=== PATIENT | female | born 1955 | race Caucasian/White ===

== ENCOUNTER 2019-05-10 20:40 | Inpatient (IN) | payer MEDICAID ==
[~2019-05-10] VITALS: Ht 152.4 cm; Wt 52.6 kg
[2019-05-10 20:43] VITALS: BP_SYST 102
--- NOTE | 2019-05-10 20:43 | NUR ---
Placed in room 6 . Placed on site monitor, blood pressure machine and pulse oximeter. To gown for exam. Side rails up. Report given to LILIAN BAR.
--- NOTE | 2019-05-10 20:55 | NUR ---
RT at bedside
--- NOTE | 2019-05-10 21:00 | NUR ---
patient BIB BLS from SNF with c/o Trach bleeding s/p forced removal in AM. patient present with GCS of 7 at baseline. patient is stable trach to T Bar. patient has scant amount of blood on lips, no blood on trach site or inner cannula at the time of assessment. patient is not drooling, coughing or showing signs of blood/fluid in the throat at this time. Patient has CRE contact precautions from facility. Per EMT, patient was t-bar and stable at facility and needs medical evaluation/clearance. no other complaint or injury at this time.
--- NOTE | 2019-05-10 21:00 | NUR ---
ER at bedside examining patient.
--- NOTE | 2019-05-10 21:30 | NUR ---
Unsuccessful PIV attempts x 3 with U/S guidance. Blood flash to angiocath chamber, then blood stops with advancement attempt. All angiocaths D/C with tips intact, pressure dsgs applied to sites. Pt tolerated well.
--- NOTE | 2019-05-10 22:15 | NUR ---
patient shows not change in VS, patient resting at bedside. no acute bleeding from stable trach noted, no coughing, gagging or drooling of any kind. will continue to monitor.
[2019-05-10] MEDS ORDERED: NACL 0.9% 1,000 ML IV ONE (23:30)
--- NOTE | 2019-05-10 23:45 | NUR ---
patient had a large black liquid Bowel Movement. notified.
[2019-05-11] VITALS (25 sets, daily range): BP systolic 91–142
--- NOTE | 2019-05-11 | NUR ---
VS change MD notified. orders provided.
--- NOTE | 2019-05-11 | NUR ---
# 23 gauge angiocath placed to right hand. Use of asceptic technique. Opsite placed over site. Blood return noted. Blood for lab drawn from site. Flushed with 10 cc of normal saline. No evidence of infiltration noted. Patient tolerated well.
--- NOTE | 2019-05-11 00:30 | NUR ---
Urine catheter placed 16fr. patient tolerated well
--- NOTE | 2019-05-11 00:30 | NUR ---
Pt SPO2 80% on O2 at 2 LPM/Trach T-bar. RT at bedside, pt placed on Mechanical Ventilation via Trach with settings: A/C 12, Vt 350, FiO2 at 50%. Addendum: 05/11/19 at 0551 by BREONNA Per RT, pt has a #6 Poitex cuffed trach
--- NOTE | 2019-05-11 00:30 | NUR ---
RT called to bedside
--- NOTE | 2019-05-11 00:30 | NUR ---
second IV access and initial blood draw needed. unable to obtain x 4 attempts. charge nurse notifed.
[2019-05-11] MEDS ORDERED: TOPI100T39 PEG (00:35)
[2019-05-11] MEDS ORDERED: AMLO5TAB4 PEG (00:35)
[2019-05-11] MEDS ORDERED: LIP10 PEG (00:35)
[2019-05-11] MEDS ORDERED: METO50TA7 PEG (00:35)
[2019-05-11] MEDS ORDERED: [UNRECOGNIZED DRUG - CODE] MC (00:35)
[2019-05-11] MEDS ORDERED: ASA81 PEG (00:35)
[2019-05-11] MEDS ORDERED: CHLO473M12 MM (00:35)
[2019-05-11] MEDS ORDERED: LEVE250T2 PEG (00:35)
--- NOTE | 2019-05-11 00:36 | NUR ---
Medication reconciliation completed with information provided by MIRELLA CALLEJAS. Any prior medication reconciliation on file was reviewed and corrected.
[2019-05-11] MEDS ORDERED: cefTRIAXone 1 GM IVPB PREMIX 50 ML IV ONE (00:45)
--- NOTE | 2019-05-11 00:45 | NUR ---
SPO2 at 88%. FiO2 increased to 60% per RT.
--- NOTE | 2019-05-11 00:55 | NUR ---
SPO2 90%, FiO2 increased to 100% per RT.
--- NOTE | 2019-05-11 00:59 | NUR ---
MRSA bilateral Nares sent to lab
[2019-05-11] MEDS ORDERED: PANTOPRAZOLE SODIUM 40 MG/VIAL (PROTONIX) IVP ONE ×2 (01:00→05:00)
--- NOTE | 2019-05-11 01:00 | NUR ---
Urine specimen collected and analyzed in lab.
[2019-05-11 01:40] LABS: CLARITY/URINE CLOUDY (CLEAR); COLOR,URINE YELLOW (YELLOW); GLUCOSE,URINE NEGATIVE (NEGATIVE); KETONES,URINE NEGATIVE (NEGATIVE); PROTEIN URINE TRACE (NEGATIVE)
[2019-05-11 01:41] LABS: BILIRUBIN,URINE NEGATIVE (NEGATIVE); BLOOD, URINE 3+ (NEGATIVE); LEUKOCYTE ESTERASE ,URINE 3+ (NEGATIVE); NITRITE, URINE NEGATIVE (NEGATIVE); UROBILINOGEN,URINE 0.2 (0.2-1.0)
[2019-05-11 01:47] LABS: BACTERIA,URINE MODERATE /HPF (None Seen); MUCUS,URINE 2+ /LPF (None Seen); RBC,URINE >100 /HPF (0-3); WBC,URINE >100 /HPF (0-3); YEAST,URINE Moderate /HPF (None Seen)
--- NOTE | 2019-05-11 02:00 | NUR ---
patient had large liquid black stool.
--- NOTE | 2019-05-11 02:29 | NUR ---
made attempt to call Next of Kin for consent of centeral line.
--- NOTE | 2019-05-11 03:40 | NUR ---
Triple Lumen Central Line placed to Left Femoral Vein per Dr. Sharma, good blood return, biopatch applied and secured with transparent dsg. Pt tolerated procedure well.
--- NOTE | 2019-05-11 03:54 | NUR ---
care reported off to Stefan
[2019-05-11] MEDS ORDERED: NOREPINEPHRINE BITARTRATE 4 MG in NS 246 ML IV ONE (04:00)
[2019-05-11] MEDS ORDERED: NOREPINEPHRINE 4 MG/4 ML VIAL IV ONE ×2 (04:03→04:04)
--- NOTE | 2019-05-11 04:09 | NUR ---
Norepinephrine drip initiated for BP: 83/43, P: 92, 100% on Vent. Will continue to monitor.
--- NOTE | 2019-05-11 04:09 | NUR ---
Zenia rios in EDM - 05/11/19 at 0544 by [email or web address] Norepiniphrine drip initiated for BP: 83/43, P: 92, 100% on Vent. Will continue to monitor.
[2019-05-11 04:16] LABS: MEAN CORPUSCULAR HEMOGLOBIN 29 pg (27-31); MEAN CORPUSCULAR HGB CONC 31 % (32-36); MEAN CORPUSCULAR VOLUME 93 fL (79.0-98.0); PLATELET COUNT (AUTO) 624 K/uL (130-430); RED CELL DISTRIBUTION WIDTH 16.8 % (9.0-15.0)
[2019-05-11 04:18] LABS: CALCIUM 8.7 mg/dL (8.4-11.0); CREATININE 1.23 mg/dL (0.55-1.30); POTASSIUM 4.6 mmol/L (3.5-5.1)
--- NOTE | 2019-05-11 04:19 | NUR ---
Drip rate will remain at 2mcg/min: BP is 90/53, HR 96. Will continue to monitor.
[2019-05-11 04:21] LABS: INR 1.2 (0.8-1.2); PROTHROMBIN TIME 11.9 SECS (9.5-12.5)
[2019-05-11 04:23] LABS: ALBUMIN 1.6 g/dL (3.4-4.8); TOTAL BILIRUBIN 0.2 mg/dL (0.0-1.0)
--- NOTE | 2019-05-11 04:29 | NUR ---
Pt's SBP is greater than 90. Drip will continue to infuse at 2mcg/min. Will continue to monitor.
[2019-05-11 04:37] LABS: HEMATOCRIT 18.2 % (36-48); HEMOGLOBIN 5.6 g/dL (12.0-16.0)
[2019-05-11 04:38] LABS: RED BLOOD CELL COUNT(AUTO) 1.96 MIL/uL (4.2-6.2)
--- NOTE | 2019-05-11 04:39 | NUR ---
Pt's SBP is greater than 90. Drip will continue to infuse at 2mcg/min. Will continue to monitor.
--- NOTE | 2019-05-11 04:49 | NUR ---
Pt's SBP is greater than 90. Drip will continue to infuse at 2mcg/min. Will continue to monitor.
--- NOTE | 2019-05-11 04:50 | NUR ---
Admit orders received from Dr. Muñoz. Pt ICU Hold r/t nursing staffing.
--- NOTE | 2019-05-11 04:59 | NUR ---
Norepinephrine drip titrated to 4mcg/min per protocol for BP: 84/43 and HR: 106. Will continue to monitor
[2019-05-11 05:00] LABS: ATYPICAL LYMPHOCYTES % 0 % (0-0); BAND % (MANUAL) 14 % (0-6); BASOPHILS % (MANUAL) 0 % (0-2); EOSINOPHILS % (MANUAL) 0 % (0-7); LYMPHOCYTES % (MANUAL) 5 % (20-46); METAMYELOCYTES % 2 % (0-0); MONOCYTES % (MANUAL) 1 % (0-11); MYELOCYTES % 0 % (0-0)
[2019-05-11] MEDS ORDERED: NACL 0.9% 2,000 ML IV ONE (05:00)
[2019-05-11] MEDS: NACL 0.9% 1,000 ML IV SCH ×3 (05:00→17:00)
[2019-05-11] MEDS ORDERED: NOREPINEPHRINE BITARTRATE 4 MG in NS 246 ML IV SCH (05:00)
--- NOTE | 2019-05-11 05:09 | NUR ---
Pt's SBP is greater than 90. Drip will continue to infuse at 4mcg/min. Will continue to monitor.
[2019-05-11] MEDS ORDERED: PANTOPRAZOLE SODIUM 40 MG/VIAL (PROTONIX) ONE (05:19)
--- NOTE | 2019-05-11 05:19 | NUR ---
Pt's SBP is greater than 90. Drip will continue to infuse at 4mcg/min. Will continue to monitor.
--- NOTE | 2019-05-11 05:29 | NUR ---
Pt's SBP is greater than 90. Drip will continue to infuse at 4mcg/min. BP: 92/54 and HR: 97. Will continue to monitor
--- NOTE | 2019-05-11 05:30 | NUR ---
Pt unable to sign blood consent. Consent signed by myself and witnessed by a second RN. Also pt.'s son gave verbal phone consent for Full Code treatment. Requisitions sent to lab along with consent to prepare 2 units PRBC for stat transfusion.
--- NOTE | 2019-05-11 05:39 | NUR ---
BP: 102/58 HR: 89. Norepinephrine drip will be continued at 4mcg/min. Will continue to monitor.
[2019-05-11] MEDS: PANTOPRAZOLE SODIUM 40 MG in NS 50 ML IV SCH ×5 (05:40→20:05)
--- NOTE | 2019-05-11 05:49 | NUR ---
Lab calls to inform that blood is ready.
--- NOTE | 2019-05-11 05:49 | NUR ---
BP: 102/54 HR: 84. Norepinephrine drip will be continued at 4mcg/min. Will continue to monitor.
--- NOTE | 2019-05-11 05:59 | NUR ---
Continuous drip has been tritrated down to 3mcg/min for BP 111/59 and HR 83. Will continue to monitor
--- NOTE | 2019-05-11 06:09 | NUR ---
Drip will continue to infuse at 3mcg/min per BP of 99/58 and HR of 85. Will continue to monitor
--- NOTE | 2019-05-11 06:35 | NUR ---
Verbal consent was granted via phone per patient's son agreeing to administration of blood. Blood has been type and crossmatched. Blood sent from blood bank. Information on unit of blood checked against patient wristband at bedside by and Gato BAR. All information matches. Patient or responsible democrat informed of potential complications associated with blood transfusion. Informed of possible transfusion reaction symptoms. Aware of need to notify nurse at once of itching, shortness of breath, flushing, feeling of impending doom, or other symptoms not previously present. Vital signs taken within 5 minutes prior to initiation of transfusion. Stefan BAR will remain with patient for first 15 minutes of transfusion at which time vital signs will be re-assessed.
--- NOTE | 2019-05-11 06:39 | NUR ---
Norepinephrine drip titrated down to 2mcg/min for BP of 110/44 and HR 82. Will continue to monitor.
--- NOTE | 2019-05-11 06:50 | NUR ---
Patient is stable and no adverse effects noted 15 minutes after starting transfusion. Blood infusion rate has increased. Vital signs are stable, will continue to monitor.
--- NOTE | 2019-05-11 07:02 | NUR ---
Patient will be admitted to care of Dr. Muñoz. Admitted to ICU unit. Will go to room 4. Belongings list completed. Summary report printed. Report will be given at bedside.
--- NOTE | 2019-05-11 07:30 | NUR ---
Transfer to ICU 4 via ACLS protocol. Licensed nurse present. IV present no signs or symptoms of infiltration.
--- NOTE | 2019-05-11 07:40 | NUR ---
ADMISSION NOTE Received patient from ER via meera. Patient admitted with diagnosis of GI Bleed and Hypovolemic Shock. Patient is obtunded and responds to painful stimuli. Received with packed cell infusion and levophed drip at 2 mcg. Safety checks in place and bed set with brakes and lowest position. Addendum: 05/11/19 at 0905 by James Seo RN Received report via sbar from endorsing nurse DIPIKA Aviles.
--- NOTE | 2019-05-11 07:45 | NUR ---
Reviewed patient chart from [facility]. 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 Contact isolation initiated.
--- NOTE | 2019-05-11 07:50 | NUR ---
Blood Transfusion Began transfusion of second unit. Completed timeout with Cathy BAR. Patient vitals pre transfusion was 97.5, 88, 122/66, 18, 100 O2.
[2019-05-11] MEDS ORDERED: ACETAMINOPHEN 650 MG SUPP.RECT RC PRN (08:00)
[2019-05-11] MEDS ORDERED: cefTRIAXone 1 GM in D5W 50 ML IV SCH (08:00)
[2019-05-11] MEDS ORDERED: LORazepam 2 MG/ML VIAL IVP PRN (08:00)
[2019-05-11] MEDS ORDERED: PANTOPRAZOLE SODIUM 40 MG in NS 50 ML IV SCH (08:00)
--- NOTE | 2019-05-11 08:05 | NUR ---
Blood Transfusion Patient is laying on bed and not presenting any respiratory distress or any other visible signs of an adverse reaction. Patient vitals are 97.8, 91, 17, 118/60, 100%.
--- NOTE | 2019-05-11 09:02 | NUR ---
ANSWERING SERVICE. LEFT MESSAGE TO LADY FOR A CONSULT WITH DR JETT.
--- NOTE | 2019-05-11 09:06 | NUR ---
ANSWERING SERVICE. PHONED OFFICE # OF DR PHELPS, MESSAGE LEFT TO PURVI.
[2019-05-11] MEDS: LEVOFLOXACIN 250 MG/D5W 50 ML IV SCH (10:00)
[2019-05-11] MEDS: levETIRAcetam 250 MG in NS 100 ML IV SCH ×2 (10:39→21:17)
[2019-05-11 11:55] LABS: BASOPHILS % (AUTO) 0.1 % (0.0-2.0); EOSINOPHILS % (AUTO) 0.1 % (0.0-4.0); HEMATOCRIT 30.3 % (36-48); HEMOGLOBIN 9.7 g/dL (12.0-16.0); LYMPHOCYTES # (AUTO) 0.6 K/uL (1.0-5.5); LYMPHOCYTES % (AUTO) 2.6 % (20.5-51.5); MEAN CORPUSCULAR HEMOGLOBIN 31 pg (27-31); MEAN CORPUSCULAR HGB CONC 32 % (32-36); MEAN CORPUSCULAR VOLUME 96 fL (79.0-98.0); MONOCYTES # (AUTO) 0.5 K/uL (0.0-1.0); NEUTROPHILS # (AUTO) 23.9 K/uL (1.8-7.7); NEUTROPHILS % (AUTO) 95.2 % (40.0-70.0); PLATELET COUNT (AUTO) 369 K/uL (130-430); RED BLOOD CELL COUNT(AUTO) 3.15 MIL/uL (4.2-6.2); RED CELL DISTRIBUTION WIDTH 15.3 % (9.0-15.0); WHITE BLOOD COUNT (AUTO) 25.1 K/uL (4.8-10.8)
--- NOTE | 2019-05-11 12:30 | NUR ---
Called Dr. Muñoz left message with exchange.
--- NOTE | 2019-05-11 12:55 | NUR ---
Received call from Dr. Muñoz. Reported new CBC results. Received orders for another CMP CBC at 1999, PRN Bolus 0.9 NS if systolic blood pressure is less than 90, and reduced NS IV fluid to 150 ml/hr.
[2019-05-11] MEDS ORDERED: NS 500 ML IV ONE (14:00)
[2019-05-11] MEDS ORDERED: NS 500 ML IV PRN (14:45)
--- NOTE | 2019-05-11 15:40 | NUR ---
RT NOTES Sterile trach care well tolerated. T.T remains secure/patent. Spare trach/ambubag at bedside.
[2019-05-11] MEDS: METOCLOPRAMIDE HCL 10 MG/2 ML VIAL IVP SCH (17:32)
--- NOTE | 2019-05-11 19:28 | NUR ---
Closing Note Provided plan of care via sbar to endorsing nurse Gray BAR. Completed bedside round.
--- NOTE | 2019-05-11 19:58 | NUR ---
TRACH TO VENT AC 12 TV 350 FIO2 100 % kept up right position VENT ALARMING @ times suction AIR WAY thick mucus as needed tolerated chest movement shallow also symmetrical no use of accessory muscles / monitor .
--- NOTE | 2019-05-11 20:01 | NUR ---
LABS ORDERED BLOOD DRAWL @ THE BEDSIDE THIS HOUR CBC BMP .
[2019-05-11 20:17] LABS: BASOPHILS % (AUTO) 0.1 % (0.0-2.0); EOSINOPHILS # (AUTO) 0.1 K/uL (0.0-0.4); EOSINOPHILS % (AUTO) 0.4 % (0.0-4.0); HEMATOCRIT 25.7 % (36-48); LYMPHOCYTES # (AUTO) 0.5 K/uL (1.0-5.5); LYMPHOCYTES % (AUTO) 2.7 % (20.5-51.5); MEAN CORPUSCULAR HEMOGLOBIN 31 pg (27-31); MEAN CORPUSCULAR HGB CONC 33 % (32-36); MEAN CORPUSCULAR VOLUME 95 fL (79.0-98.0); MONOCYTES # (AUTO) 0.5 K/uL (0.0-1.0); MONOCYTES % (AUTO) 2.4 % (1.7-9.3); NEUTROPHILS # (AUTO) 18.4 K/uL (1.8-7.7); NEUTROPHILS % (AUTO) 94.4 % (40.0-70.0); PLATELET COUNT (AUTO) 363 K/uL (130-430); RED BLOOD CELL COUNT(AUTO) 2.71 MIL/uL (4.2-6.2); RED CELL DISTRIBUTION WIDTH 15.6 % (9.0-15.0); WHITE BLOOD COUNT (AUTO) 19.5 K/uL (4.8-10.8)
[2019-05-11 20:27] LABS: CREATININE 0.71 mg/dL (0.55-1.30)
[2019-05-11 20:28] LABS: HEMOGLOBIN 8.4 g/dL (12.0-16.0)
[2019-05-11 20:38] LABS: POTASSIUM 2.9 mmol/L (3.5-5.1)
--- NOTE | 2019-05-11 20:54 | NUR ---
PHONED PAGED DR CLEARY REGARDING K 2.9 & CL 121
--- NOTE | 2019-05-11 21:05 | NUR ---
DR MADIHA Ortiz notified regarding Vent oxygen saturation orders, and Lab results of K+ 2.9, CL 121. Orders received. 1. Krider 40MeQ KcL IV 100ml via central line over 4 HRs 2. Titrate FIO2 to keep O2 saturation greater than 90%.
[2019-05-11] MEDS ORDERED: KCL 40 mEq in 100 mL (PREMIX) 100 ML IV ONE ×3 (21:15→22:19)
[2019-05-11] MEDS ORDERED: VANCOMYCIN HCL 1 GM/NS PREMIX 250 ML IV SCH (22:30)
--- NOTE | 2019-05-11 22:30 | NUR ---
PHONED PAGED DR RIKI RECIO REGARDING + BC
[2019-05-11] MEDS ORDERED: VANCOMYCIN HCL 1000 MG/VIAL IV ONE (22:51)
--- NOTE | 2019-05-11 23:01 | NUR ---
NEW ORDERS DR LYN , ID CONSULT DR Maricruz SIFUENTES START VANCO 1 GM , 0.45 % NS @ 150 ML HR .
--- NOTE | 2019-05-11 23:35 | NUR ---
CONSULTATION PAGED/CALLED Reason for Consultation: Positive Blood culture Person Who was Notified: Kathy Singh Consulting Physician: Dr Sixto Mario Trimming Operator Specialty: ID Ordering Physician: Dr Muñoz
--- NOTE | 2019-05-11 23:56 | NUR ---
FI02 CHANGED TO 70 % 02 SAT 100 %
[2019-05-12] VITALS (30 sets, daily range): BP systolic 94–126
--- NOTE | 2019-05-12 | NUR ---
DR Maricruz SIFUENTES MD at the bedside with patient .
[2019-05-12] MEDS: 0.45% NS 500 ML IV SCH ×2 (01:26→03:11)
--- NOTE | 2019-05-12 02:49 | NUR ---
BED BATH GIVEN LARGE STOOL NOTED KEPT CLEAN ALSO DRY as needed & prn .
[2019-05-12] MEDS: PANTOPRAZOLE SODIUM 40 MG in NS 50 ML IV SCH ×3 (03:09→14:25)
--- NOTE | 2019-05-12 04:38 | NUR ---
CHG bed bath administer off loading Reposition & turning on two - hour schedule also kept clean & dry as needed activity tolerated .
[2019-05-12] MEDS ORDERED: 0.45% NS 1,000 ML IV SCH (04:58)
[2019-05-12 05:02] LABS: BASOPHILS % (AUTO) 0.3 % (0.0-2.0); EOSINOPHILS # (AUTO) 0.2 K/uL (0.0-0.4); EOSINOPHILS % (AUTO) 1.7 % (0.0-4.0); HEMOGLOBIN 7.3 g/dL (12.0-16.0); LYMPHOCYTES # (AUTO) 0.6 K/uL (1.0-5.5); LYMPHOCYTES % (AUTO) 4.4 % (20.5-51.5); MEAN CORPUSCULAR HEMOGLOBIN 31 pg (27-31); MEAN CORPUSCULAR HGB CONC 34 % (32-36); MEAN CORPUSCULAR VOLUME 94 fL (79.0-98.0); MONOCYTES # (AUTO) 0.4 K/uL (0.0-1.0); NEUTROPHILS # (AUTO) 13.1 K/uL (1.8-7.7); NEUTROPHILS % (AUTO) 90.6 % (40.0-70.0); PLATELET COUNT (AUTO) 333 K/uL (130-430); RED BLOOD CELL COUNT(AUTO) 2.31 MIL/uL (4.2-6.2); RED CELL DISTRIBUTION WIDTH 15.4 % (9.0-15.0); WHITE BLOOD COUNT (AUTO) 14.5 K/uL (4.8-10.8)
[2019-05-12 05:05] LABS: HEMATOCRIT 21.6 % (36-48)
[2019-05-12 05:21] LABS: INR 1.1 (0.8-1.2)
[2019-05-12 05:23] LABS: ALBUMIN 1.3 g/dL (3.4-4.8); CALCIUM 7.8 mg/dL (8.4-11.0); CREATININE 0.71 mg/dL (0.55-1.30); PHOSPHORUS 2.7 mg/dL (2.7-4.5); POTASSIUM 3.3 mmol/L (3.5-5.1); TOTAL BILIRUBIN 0.1 mg/dL (0.0-1.0)
--- NOTE | 2019-05-12 06:00 | NUR ---
DR RIKI RECIO UPDATED & MADE AWARE OF CRITICAL LABS H 7.3 H 21.6 CL 126 , NEW ORDERS OBTAINED .
[2019-05-12] MEDS: METOCLOPRAMIDE HCL 10 MG/2 ML VIAL IVP SCH ×2 (06:30→11:12)
[2019-05-12] MEDS: D5W 1,000 ML IV SCH ×2 (06:31→21:03)
[2019-05-12] MEDS ORDERED: KCL 40 mEq in 100 mL (PREMIX) 100 ML IV ONE (07:00)
--- NOTE | 2019-05-12 07:35 | NUR ---
OPENING NOTE Patient resting in the bed with eyes closed. No acute distress. Respiration even and unlabored. HOB elevated. Trach intact to vent:AC-12, VT-350, FIO2-350. Skin warm and dry to touch. Central line intact to left femoral intact, no redness, no swelling, no drainage, covered with clean and dry dressing. On D5W at 150ml/hr, and Protonix drip at 10ml/hr, infusing well. F/C intact, drain gravity with yellow urine. Safety measure maintained. Call light within reached. Bed locked in low position, side rails up. Will continue to monitor.
--- NOTE | 2019-05-12 08:05 | NUR ---
ADJUSTED FIO2 BY RT RT adjusted FIO2 from 60% to 40% based on ABG result, NF2=983.7mmHg, PCO2=26.9mmHg. Patient resting in the bed with no scute distress. O2 avg=961% at this time. Continue to monitor.
[2019-05-12] MEDS: LEVOFLOXACIN 250 MG/D5W 50 ML IV SCH (08:44)
--- NOTE | 2019-05-12 09:19 | NUR ---
CORK PRESSING MACHINE OPERATOR CONSULT Called and received the call back from Dr. Muñoz [facility], reported to Dr. Muñoz patient heart rate elevated to 130s-150s and no stone polisher machine consult. Dr. Muñoz with order for stone polisher machine consult with Michael Jones. Dr. Pa in the unit and awake the consult.
[2019-05-12] MEDS ORDERED: METOPROLOL TARTRATE 5 MG/5 ML VIAL IVP PRN (09:30)
[2019-05-12] MEDS: CEFEPIME 1 GM in D5W 50 ML IV SCH ×2 (09:57→22:12)
[2019-05-12] MEDS: levETIRAcetam 250 MG in NS 100 ML IV SCH ×2 (10:33→21:05)
--- NOTE | 2019-05-12 10:53 | NUR ---
SEEN AND EXAMINED BY SHAAN ENGLAND Awake ABG result for today and FIO2=40% now.
[2019-05-12] MEDS: VANCOMYCIN HCL 750 MG/NS 250 ML IV SCH ×2 (11:12→22:13)
--- NOTE | 2019-05-12 11:20 | NUR ---
BLOOD TRANSFUSION STARTED Patient no acute distress. BP=96/64, T=98.2, P=122, R=22.Will stay with patient for 15 min.
--- NOTE | 2019-05-12 11:35 | NUR ---
15 MIN AFTER BLOOD TRANSFUSION STARTED Patient no acute distress. T=98.7, P=130, R=28, VJ=255/67. No skin rashes noted. Continue to monitor.
--- NOTE | 2019-05-12 13:45 | NUR ---
BLOOD TRANSFUSION COMPLETED No acute distress. T=98.3, P=103, R=25, DS=952/64. No skin rash noted. Safety measure maintained. Continue on Protonix drip, infusing well. Safety measure maintained. Call light within reached. Bed locked in low position, side rails up, bed alarm on. Continue to monitor.
[2019-05-12] MEDS ORDERED: MEPERIDINE HCL/PF 100 MG/ML AMP ONE (14:15)
[2019-05-12] MEDS ORDERED: SIMETHICONE 40 MG/0.6 ML ML ONE (14:16)
[2019-05-12] MEDS: MEPERIDINE HCL/PF 25 MG/ML DISP.SYRIN ONE ×2 (16:18→16:20)
[2019-05-12] MEDS: MIDAZOLAM HCL 5 MG/5 ML VIAL ONE ×2 (16:18→16:20)
--- NOTE | 2019-05-12 16:29 | NUR ---
EGD DONE BY MAREK RITCHIE AT BEDSIDE EGD with biopsy done by Marek Ritchie at bedside with diagnosis of esophagitis and gastritis. Patient in stable condition. No acute distress. Procedure tolerated well. Safety measure maintained. Call light within reached. Continue to monitor.
--- NOTE | 2019-05-12 16:40 | NUR ---
SEEN BY DR. LYN [facility], WILL CHECK ORDER.
[2019-05-12] MEDS ORDERED: SUCRALFATE 1 GM TABLET PO ONE (17:15)
[2019-05-12] MEDS ORDERED: MUPIROCIN 2% TOPICAL OINTMENT 22 GM NS ONE (17:15)
--- NOTE | 2019-05-12 18:55 | NUR ---
CLOSING NOTE Patient resting in the bed with eyes closed. No acute distress. Respiration even and unlabored. HOB elevated. Trach intact to vent:AC-12, VT-350, FIO2-40%. Skin warm and dry to touch. Central line intact to left femoral intact, no redness, no swelling, no drainage, covered with clean and dry dressing. IVF infusing well. F/C intact, drain gravity with yellow urine. All needs met. No seizure activity noted during shift. Safety measure maintained. Call light within reached. Bed locked in low position, side rails up. Will endorse to night nurse.
--- NOTE | 2019-05-12 19:30 | NUR ---
REPORT GIVEN TO NEHAL, MARCO ANTONIO NURSE Patient in stable condition, no acute distress. Jevity 1.2 not available at this time endorsed to Nehal to follow up.
[2019-05-12] MEDS: PANTOPRAZOLE SODIUM 40 MG TAB GT SCH (21:03)
[2019-05-12] MEDS: SUCRALFATE 1 GM TABLET PO SCH (21:03)
[2019-05-13] VITALS (23 sets, daily range): BP systolic 105–164
[2019-05-13] MEDS: D5W 1,000 ML IV SCH ×2 (02:30→09:10)
[2019-05-13] MEDS ORDERED: ACETAMINOPHEN 650 MG/20.3 ML UDC GT PRN (05:00)
[2019-05-13] MEDS ORDERED: ACETAMINOPHEN 650 MG/20.3 ML UDC ONE (05:05)
[2019-05-13 05:43] LABS: BASOPHILS % (AUTO) 0.3 % (0.0-2.0); EOSINOPHILS # (AUTO) 0.5 K/uL (0.0-0.4); EOSINOPHILS % (AUTO) 4.4 % (0.0-4.0); HEMATOCRIT 22.9 % (36-48); LYMPHOCYTES # (AUTO) 0.8 K/uL (1.0-5.5); LYMPHOCYTES % (AUTO) 7.1 % (20.5-51.5); MEAN CORPUSCULAR HEMOGLOBIN 31 pg (27-31); MEAN CORPUSCULAR HGB CONC 34 % (32-36); MEAN CORPUSCULAR VOLUME 91 fL (79.0-98.0); MONOCYTES # (AUTO) 0.5 K/uL (0.0-1.0); MONOCYTES % (AUTO) 4.6 % (1.7-9.3); NEUTROPHILS # (AUTO) 9.6 K/uL (1.8-7.7); NEUTROPHILS % (AUTO) 83.6 % (40.0-70.0); PLATELET COUNT (AUTO) 303 K/uL (130-430); RED BLOOD CELL COUNT(AUTO) 2.51 MIL/uL (4.2-6.2); RED CELL DISTRIBUTION WIDTH 16.3 % (9.0-15.0); WHITE BLOOD COUNT (AUTO) 11.5 K/uL (4.8-10.8)
[2019-05-13 05:58] LABS: INR 1.1 (0.8-1.2); PROTHROMBIN TIME 11.1 SECS (9.5-12.5)
[2019-05-13 05:59] LABS: HEMOGLOBIN 7.8 g/dL (12.0-16.0)
[2019-05-13 06:10] LABS: ALBUMIN 1.5 g/dL (3.4-4.8); CALCIUM 8.1 mg/dL (8.4-11.0); CREATININE 0.72 mg/dL (0.55-1.30); THYROID STIMULATING HORMONE 4.08 uIu/mL (0.34-4.82)
--- NOTE | 2019-05-13 06:51 | NUR ---
Nutrition Update Fortunato Scale 12 noted. Pt admitted for GI bleed, Hypovolemic shock Diet: Jevity 1.2 at 50ml/hr, FWF 100ml Q6H via GT BMI: 26.4 kg/m2 RD to follow per nutrition care standards.
--- NOTE | 2019-05-13 07:05 | NUR ---
Opening Note Patient received in bed on surveillance system monitor with NSR. Patient has a tracheostomy in place and on ventilator with settings of AC 12, TV 350, FiO2 40% with notable deep breathing. Patient has a left femoral central line infusing D5W @ 150 ml/hr. Patient has a g-tube in place infusing Jevity 1.2 @ 30 ml/hr. Patient has a sullivan catheter in place draining yellow urine. Safety and seizure precautions enforced.
--- NOTE | 2019-05-13 07:21 | NUR ---
ENDORSEMENT Pt care endorsed to DIPIKA Beckman using nursing SBAR.
[2019-05-13 07:38] LABS: POTASSIUM 2.5 mmol/L (3.5-5.1)
[2019-05-13 07:55] LABS: TOTAL BILIRUBIN 0.2 mg/dL (0.0-1.0)
[2019-05-13] MEDS ORDERED: KCL 40 mEq in 100 mL (PREMIX) 100 ML IV ONE (08:15)
[2019-05-13] MEDS ORDERED: POTASSIUM CHLORIDE 20 MEQ/PKT PACKET GT ONE (08:15)
--- NOTE | 2019-05-13 08:30 | NUR ---
MD Rounds Dr. Pa @ bedside. No new orders received.
[2019-05-13] MEDS: levETIRAcetam 250 MG in NS 100 ML IV SCH ×2 (08:44→20:51)
[2019-05-13] MEDS: CEFEPIME 1 GM in D5W 50 ML IV SCH ×2 (08:44→21:41)
[2019-05-13] MEDS: LEVOFLOXACIN 250 MG/D5W 50 ML IV SCH (08:45)
[2019-05-13] MEDS: MUPIROCIN 2% TOPICAL OINTMENT 22 GM NS SCH ×2 (08:46→20:51)
[2019-05-13] MEDS: PANTOPRAZOLE SODIUM 40 MG TAB GT SCH ×2 (08:46→20:52)
[2019-05-13] MEDS: SUCRALFATE 1 GM TABLET PO SCH ×4 (08:46→20:52)
--- NOTE | 2019-05-13 09:30 | NUR ---
RN Update/Wound Care Performed linen change and wound care, dressing c/d/i. Patient tolerated procedure well. No distress noted.
[2019-05-13] MEDS ORDERED: MAGNESIUM SULFATE 50 ML IV ONE (09:45)
[2019-05-13] MEDS: VANCOMYCIN HCL 750 MG/NS 250 ML IV SCH ×2 (10:24→22:10)
--- NOTE | 2019-05-13 11:05 | NUR ---
MD Rounds Dr. De Paz @ bedside. New orders received and carried out.
--- NOTE | 2019-05-13 14:17 | NUR ---
Dietitian Recommendations *Recommend Vital AF 1.2 at 50ml/hr (goal rate), Brad BID, FWF 100ml Q6H via GT. Provides: 1600 kcal, 95 gm/ protein and 1568ml free water daily. Meets: 103% of estimated calorie needs and 78% of lower end of estimated protein needs. Please see Nutritional Assessment for details. [facility], RD
[2019-05-13] MEDS ORDERED: MAGNESIUM SULFATE 4 GM in D5W 250 ML IV ONE (16:00)
[2019-05-13] MEDS ORDERED: METOPROLOL TARTRATE 50 MG TABLET PO ONE (16:15)
[2019-05-13] MEDS: CHOLECALCIFEROL (VITAMIN D3) 2,000 UNIT TABLET GT SCH (16:15)
[2019-05-13] MEDS ORDERED: cloNIDine HCL 0.1 MG TABLET GT PRN (16:15)
--- NOTE | 2019-05-13 16:40 | NUR ---
Central line dressing change Central line dressing changed. New dressing c/d/i. Patient tolerated procedure well. No distress noted.
[2019-05-13] MEDS: FLUCONAZOLE 100 MG TABLET (DIFLUCAN) GT SCH (17:00)
--- NOTE | 2019-05-13 17:03 | NUR ---
1650 CHANGED RATE TO [address] RAMOS. PT TOLERATING WELL. WILL CONTINUE TO MONITOR. Addendum: 05/13/19 at 1704 by Kymberly Mohamud RT Amended: Links added.
[2019-05-13] MEDS: LR 1,000 ML IV SCH (17:30)
--- NOTE | 2019-05-13 18:42 | NUR ---
Transfer Transferred patient to Tele 134A via bed and is connected to portable youth nutritional monitor. Patient endorsed to tele tech using SBAR format. No signs of distress noted during transfer.
--- NOTE | 2019-05-13 20:00 | NUR ---
Pt was received lying in bed with both eyes closed. No acute distress noted at this time. Fall, safety and seizure precautions are in place. Pt has Tracheostomy in place and connected to Mechanical Ventilator with settings of AC 14, TV 350 and FIO2 of 40%. Pt is tolerating vent settings well. IVF of LR is infusing well via left Femoral line at 100ml/hr with the dressing dry and intact. G tube is currently clamped and GT Feeding of Vital AF will be started at 50ml/hr per MD's order. Vanegas Cath to gravity drainage noted with yellowish urine.
[2019-05-13] MEDS: POTASSIUM CHLORIDE 20 MEQ/PKT PACKET PO SCH (20:52)
[2019-05-13] MEDS: LACTOBACILLUS RHAMNOSUS GG 1 CAP CAPSULE GT SCH (20:52)
[2019-05-13] MEDS: METOPROLOL TARTRATE 50 MG TABLET PO SCH (20:53)
--- NOTE | 2019-05-13 22:00 | NUR ---
Pt remains non-verbal. IVF and GT Feeding are infusing well. Fall, seizure and safety precautions are in place.
--- NOTE | 2019-05-14 | NUR ---
Pt is resting quietly in bed. No signs of distress noted. IVF and GTF are infusing well. Fall, safety and seizure precautions are in place.
[2019-05-14] MEDS: LR 1,000 ML IV SCH ×2 (02:00→12:56)
--- NOTE | 2019-05-14 02:00 | NUR ---
Pt is resting quietly in bed and tolerating vent settings well. No signs of distress noted. IVF and GTF are infusing well. Fall, safety and seizure precautions are in place.
[2019-05-14 02:32] VITALS: BP_SYST 128
--- NOTE | 2019-05-14 04:00 | NUR ---
Pt is resting without any distress noted. Fall and safety precautions are in place. IVF and G Tube feeding are infusing well.
--- NOTE | 2019-05-14 06:30 | NUR ---
Pt is resting quietly in bed. No acute distress noted at this time. IVF and GT Feeding are infusing well. Will endorse to day shift nurse.
[2019-05-14 06:52] LABS: BASOPHILS % (AUTO) 0.3 % (0.0-2.0); EOSINOPHILS # (AUTO) 0.2 K/uL (0.0-0.4); EOSINOPHILS % (AUTO) 1.5 % (0.0-4.0); HEMATOCRIT 27.3 % (36-48); LYMPHOCYTES # (AUTO) 1.1 K/uL (1.0-5.5); LYMPHOCYTES % (AUTO) 6.9 % (20.5-51.5); MEAN CORPUSCULAR HEMOGLOBIN 30 pg (27-31); MEAN CORPUSCULAR HGB CONC 33 % (32-36); MEAN CORPUSCULAR VOLUME 92 fL (79.0-98.0); MONOCYTES # (AUTO) 0.7 K/uL (0.0-1.0); MONOCYTES % (AUTO) 4.2 % (1.7-9.3); NEUTROPHILS # (AUTO) 13.7 K/uL (1.8-7.7); NEUTROPHILS % (AUTO) 87.1 % (40.0-70.0); PLATELET COUNT (AUTO) 296 K/uL (130-430); RED BLOOD CELL COUNT(AUTO) 2.95 MIL/uL (4.2-6.2); RED CELL DISTRIBUTION WIDTH 17.2 % (9.0-15.0); WHITE BLOOD COUNT (AUTO) 15.7 K/uL (4.8-10.8)
[2019-05-14 07:09] LABS: ALBUMIN 1.4 g/dL (3.4-4.8); CALCIUM 8.3 mg/dL (8.4-11.0); CREATININE 0.78 mg/dL (0.55-1.30); POTASSIUM 3.7 mmol/L (3.5-5.1); TOTAL BILIRUBIN 0.3 mg/dL (0.0-1.0)
--- NOTE | 2019-05-14 07:54 | NUR ---
PT IN BED AROUSAL TO TACTILE STIMULATION. ON VENT AND TUBE FEEDING RUNNING AND PATENT VSS WILL CONT TO MONITOR
[2019-05-14] MEDS: LACTOBACILLUS RHAMNOSUS GG 1 CAP CAPSULE GT SCH ×2 (08:36→21:13)
[2019-05-14] MEDS: PANTOPRAZOLE SODIUM 40 MG TAB GT SCH ×2 (08:36→21:13)
[2019-05-14] MEDS: POTASSIUM CHLORIDE 20 MEQ/PKT PACKET PO SCH (08:36)
[2019-05-14] MEDS: CHOLECALCIFEROL (VITAMIN D3) 2,000 UNIT TABLET GT SCH (08:36)
[2019-05-14] MEDS: FLUCONAZOLE 100 MG TABLET (DIFLUCAN) GT SCH (08:36)
[2019-05-14] MEDS: SUCRALFATE 1 GM TABLET PO SCH ×4 (08:36→21:13)
[2019-05-14] MEDS: METOPROLOL TARTRATE 50 MG TABLET PO SCH ×2 (08:37→21:14)
[2019-05-14] MEDS: VANCOMYCIN HCL 750 MG/NS 250 ML IV SCH ×2 (08:38→21:49)
[2019-05-14] MEDS: CEFEPIME 1 GM in D5W 50 ML IV SCH (08:38)
[2019-05-14] MEDS ORDERED: FLUCONAZOLE 100 MG TABLET (DIFLUCAN) GT ONE (09:15)
[2019-05-14] MEDS ORDERED: FUROSEMIDE 20 MG/2 ML VIAL IVP ONE (09:30)
[2019-05-14] MEDS ORDERED: POTASSIUM CHLORIDE 20 MEQ/PKT PACKET PO ONE (09:30)
[2019-05-14] MEDS: levETIRAcetam 250 MG in NS 100 ML IV SCH ×2 (09:36→21:14)
[2019-05-14] MEDS: MUPIROCIN 2% TOPICAL OINTMENT 22 GM NS SCH ×2 (09:59→21:15)
[2019-05-14 10:08] VITALS: BP_SYST 125
[2019-05-14 11:26] VITALS: BP_SYST 100
[2019-05-14] MEDS ORDERED: PIPERACILLIN/TAZO 4.5GM/DEX-IS 100 ML IV SCH (14:00)
--- NOTE | 2019-05-14 14:54 | NUR ---
Nicholas Alcantara for sputum culture result
--- NOTE | 2019-05-14 15:03 | NUR ---
WOUND EVALUATION: Late note for 05/14/19 at 1503 secondary to patient care. Wound Consult received from Dr. Muñoz. Thank you, Dr. Muñoz, for the consult. Patient received in a Republic Bed with an IsoFlex AMY mattress with low air-loss therapy initiated, awake, non-verbal, non-responsive to verbal commands. Patient is unable to turn in bed independently. Fortunato Score is a 12. Past Medical History: Chronic respiratory failure, tracheostomy, CVA, seizure disorder, hyperlipidemia, hypertension, anoxic encephalopathy, dysphagia, G-tube placement, on G-tube feeding, tracheostomy. Recent Labs: WBC 15.7, RBC 2.95, hemoglobin 9.0, hematocrit 27.3, chloride 109, BUN 23, creatinine 0.78, GFR 79, glucose 109, calcium 8.3, albumin 1.4, PTT 22.7. Intrinsic factors that delay wound healing: Chronic respiratory failure, encephalopathy, severe hypoalbuminemia. Extrinsic factors that delay wound healing: Immobility. Microbiology: Blood culture results 2 in progress. MRSA screen results positive. 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 Urine culture results positive for yeast. Wound Assessment: 1. Sacral area: Unstageable pressure ulcer, present on admission. Wound bed has 70% yellow slough, 30% red tissue. No odor, scant yellow purulent drainage. Periwound intact. Surrounding tissue has scar tissue. Wound measures 6.8 cm x 8.0 cm. 2. Right Upper Sacral area: Unstageable pressure ulcer, present on admission. Wound bed has 70% yellow slough, 30% red tissue. No odor, scant yellow purulent drainage. Periwound intact. Surrounding tissue has scar tissue. Wound measures 1.0 cm x 1.1 cm. 3. Left Lower Sacral area: Re-opened scar tissue from a pressure ulcer of prior unknown stage, present on admission. Wound bed has 100% dull red tissue. No odor, no drainage. Periwound intact. Surrounding tissue has scar tissue. Wound measures 1.0 cm x 0.5 cm x 0.1 cm. Recommend: Cleanse wounds with normal saline. Apply moisture barrier cream to maria luisa-wounds. Apply Venelex ointment to wound beds. Cover sites with non-adhesive foam dressings, then secure with transparent dressings. Perform wound care daily, and as needed for dressing soiling or dislodgement. 4. right lateral hip near greater trochanter: Stage IV pressure ulcer, present on admission. Wound bed has 85% red tissue, 15% yellow tissue. No odor, no drainage. Periwound has pink and dark discolored tissue. Surrounding tissue has scar tissue. Undermining present from 39 o'clock (0.6 cm at 3 o'clock; 1.2 cm at at 6 o'clock; 0.6 cm at at 3 o'clock. Wound measures 4.0 cm x 4.0 cm x 0.5 cm. Recommend: Cleanse wound with normal saline. Apply moisture barrier cream to maria luisa-wound. Apply Venelex ointment to wound bed. Cover site with foam dressing. Perform wound care daily, and as needed for dressing soiling or dislodgement. 5. Left heel: Blanchable erythema, present on admission. 6. Right heel: Blanchable erythema, present on admission. 7. left lateral malleolus: Blanchable erythema, present on admission. Recommend: Elevate, offload and float bilateral heels and ankles with one pillow lengthwise under each extremity at all times. Do not allow any portion of heels or Malleoli to touch bed or other surfaces at any times. Also recommend: Reposition patient [id number] only every 2 hours with pillow support, and off-load pressure areas with pillows for pressure re-distribution. Offload, elevate and float bilateral heels with one pillow lengthwise under each extremity at all times. Perform skin care and monitor skin integrity Q shift. Use moisture barrier cream on buttocks and other moisture susceptible areas QID and as needed for soiling. Maintain patient on a low air-loss mattress.
[2019-05-14] MEDS ORDERED: BALSAM PERU/CASTOR OIL 60 GM OINT...G. TP ONE (15:15)
[2019-05-14 15:31] VITALS: BP_SYST 103
[2019-05-14 16:00] VITALS: BP_SYST 103
[2019-05-14] MEDS ORDERED: EPOETIN ALFA 4,000 UNITS/ML VIAL SUBCUT ONE (16:30)
[2019-05-14] MEDS: NS IV SCH (17:27)
[2019-05-14] MEDS: AMIKACIN SULFATE IV SCH (17:27)
[2019-05-14] MEDS: IRON SUCROSE COMPLEX 100 MG in NS 100 ML IV SCH (17:28)
--- NOTE | 2019-05-14 18:10 | NUR ---
PT IN BED SHOWS NO S/S OF ACUTE DISTRESS PT MONITORING NO ACUTE DISTRESS NOTED WILL CONT TO JOVITA
--- NOTE | 2019-05-14 19:20 | NUR ---
OPENING NOTES Pt and endorsement received from day shift nurse. Pt is resting in bed with both eyes closed, with visible chest rise and fall with non-labored breathing noted. Pt on mech vent with setting of AC:14, FiO2:40%, TV:350ml. Pt on IVF of LR at 50ml/hr and infusing well on left femoral line. Pt on G-tube feeding with Vital AF 1.2 at 50ml/hr and infusing well. Pt on sullivan catheter with yellow urine noted in the bag and hanged below bladder level. No signs of pain like moaning or grimacing. No signs of acute distress or SOB noted. Aspiration precautions in place with head elevated at 40 degrees. Seizure pads and safety precautions in place with 3 side rails up, wheels locked, bed alarm on and in lowest level. Call light with pt. Will continue to monitor.
[2019-05-14 21:10] VITALS: BP_SYST 133
[2019-05-14] MEDS: POTASSIUM CHLORIDE 20 MEQ/PKT PACKET GT SCH (21:13)
--- NOTE | 2019-05-14 22:10 | NUR ---
INCONTINENCE CARE Pt had a loose bowel movement, incontinence care rendered with the help of SANDY Hill and pt tolerated well. Suctioning done as well, pt had a thick yellow sputum. NO signs of acute distress noted. Seizure, aspiration and safety precautions in place. Will continue to monitor.
--- NOTE | 2019-05-15 00:58 | NUR ---
ROUNDS Pt is resting in bed with both eyes closed, with visible chest rise and fall with non-labored breathing noted. FLACC score is 0/10. No signs of acute distress noted. IVF and tube feeding infusing well. Seizure, aspiration and safety precautions in place. Will continue to monitor.
[2019-05-15 01:44] VITALS: BP_SYST 140
--- NOTE | 2019-05-15 03:04 | NUR ---
ROUNDS Pt is resting in bed with both eyes closed, with visible chest rise and fall with non-labored breathing noted. No signs of pain like moaning and grimacing. No signs of acute distress noted. IVF and tube feeding are infusing well. Seizure, aspiration and safety precautions in place. Will continue to monitor.
--- NOTE | 2019-05-15 05:30 | NUR ---
INCONTINENCE CARE Pt had a loose bowel movement, incontinence care rendered and wound care on sacrum done with the help of SANDY Hill and pt tolerated well. No signs of acute distress noted. Seizure, aspiration and safety precautions in place. Will continue to monitor.
[2019-05-15] MEDS: LR 1,000 ML IV SCH (05:40)
--- NOTE | 2019-05-15 06:27 | NUR ---
CLOSING NOTES Pt is resting in bed with both eyes closed, with visible chest rise and fall with non-labored breathing noted. IVF and tube feeding are infusing well. Kept sullivan bag hanged below bladder level. No grimacing or moaning, FLACC score of 0/10. No signs of acute distress or SOB noted. Suctioning done as needed. All needs attended throughout the shift. Aspiration precautions maintained with head elevated at 40 degrees. Seizure pads in place. Safety precautions maintained with 3 side rails up, wheels locked, bed alarm on and in lowest level. Call light with pt. Will endorse to day shift nurse.
--- NOTE | 2019-05-15 07:15 | NUR ---
sbar report received at the bedside from the nite nurse. patient non verbal. both eyes are open. lungs bilaterally diminished at the bases. with ventilator setting of ac 14, tv 350 and Fio2 35%. has trach in placed. has iv access on the left femoral area 3 lumen patent/dry. has g tube w/mary grace af 1.2 at 50cc/hr infusing on well. has sullivan catheter in placed. draining clear yellow urine. bed in low position,alarmed and locked. hourly rounding necessary including turning q 2 hours.
[2019-05-15 08:07] LABS: BASOPHILS % (AUTO) 0.1 % (0.0-2.0); EOSINOPHILS # (AUTO) 0.3 K/uL (0.0-0.4); EOSINOPHILS % (AUTO) 2.2 % (0.0-4.0); HEMATOCRIT 28.2 % (36-48); HEMOGLOBIN 9.4 g/dL (12.0-16.0); LYMPHOCYTES % (AUTO) 8.6 % (20.5-51.5); MEAN CORPUSCULAR HEMOGLOBIN 31 pg (27-31); MEAN CORPUSCULAR HGB CONC 33 % (32-36); MEAN CORPUSCULAR VOLUME 92 fL (79.0-98.0); MONOCYTES # (AUTO) 0.5 K/uL (0.0-1.0); MONOCYTES % (AUTO) 4.2 % (1.7-9.3); NEUTROPHILS # (AUTO) 9.8 K/uL (1.8-7.7); NEUTROPHILS % (AUTO) 84.9 % (40.0-70.0); PLATELET COUNT (AUTO) 314 K/uL (130-430); RED BLOOD CELL COUNT(AUTO) 3.07 MIL/uL (4.2-6.2); RED CELL DISTRIBUTION WIDTH 17.1 % (9.0-15.0)
[2019-05-15 08:12] LABS: WHITE BLOOD COUNT (AUTO) 11.5 K/uL (4.8-10.8)
[2019-05-15 08:37] LABS: ALBUMIN 1.4 g/dL (3.4-4.8); CALCIUM 8.3 mg/dL (8.4-11.0); CREATININE 0.7 mg/dL (0.55-1.30); POTASSIUM 3.2 mmol/L (3.5-5.1); TOTAL BILIRUBIN 0.3 mg/dL (0.0-1.0)
[2019-05-15] MEDS ORDERED: BALSAM PERU/CASTOR OIL 60 GM OINT...G. TP SCH (09:00)
--- NOTE | 2019-05-15 09:00 | NUR ---
dr gordon came and evaluate the patient. informed if she wants breathing treatment.
--- NOTE | 2019-05-15 09:00 | NUR ---
incontinency care done.
[2019-05-15] MEDS: PANTOPRAZOLE SODIUM 40 MG TAB GT SCH (09:49)
[2019-05-15] MEDS: CHOLECALCIFEROL (VITAMIN D3) 2,000 UNIT TABLET GT SCH (09:49)
[2019-05-15] MEDS: POTASSIUM CHLORIDE 20 MEQ/PKT PACKET GT SCH (09:49)
[2019-05-15] MEDS: levETIRAcetam 250 MG in NS 100 ML IV SCH (09:49)
[2019-05-15] MEDS: VANCOMYCIN HCL 750 MG/NS 250 ML IV SCH (09:49)
--- NOTE | 2019-05-15 09:49 | NUR ---
keppra iv given.
[2019-05-15] MEDS: LACTOBACILLUS RHAMNOSUS GG 1 CAP CAPSULE GT SCH (09:53)
[2019-05-15] MEDS: SUCRALFATE 1 GM TABLET PO SCH ×3 (09:53→16:12)
[2019-05-15] MEDS: METOPROLOL TARTRATE 50 MG TABLET PO SCH (09:53)
[2019-05-15] MEDS: FLUCONAZOLE 100 MG TABLET (DIFLUCAN) GT SCH (09:55)
--- NOTE | 2019-05-15 10:00 | NUR ---
med pass by crushing via g tube.
[2019-05-15 10:34] VITALS: BP_SYST 134
--- NOTE | 2019-05-15 10:37 | NUR ---
oral care given. turn to sides.
--- NOTE | 2019-05-15 11:15 | NUR ---
RT NOTES Sterile trach care well tolerated, new inner cannula in place. Trach tube remains secure/patent. Bilat. b/s/chest rise noted. No SOB noted.
--- NOTE | 2019-05-15 12:05 | NUR ---
Discharge Planning: DCP faxed pt referral to [facility] (f [phone] p [phone]) pt accepted back to [facility] per Reuben DCP made nurse aware DC order is needed. Addendum: 05/15/19 at 1457 by Miguelina Joyner DP [facility] (f [phone] p [phone]) [facility], [facility] ([phone]) 6:00pm P/U. Nurse made aware packet taken to nurse station.
[2019-05-15] MEDS: MUPIROCIN 2% TOPICAL OINTMENT 22 GM NS SCH (12:34)
[2019-05-15 13:06] VITALS: BP_SYST 144
[2019-05-15] MEDS ORDERED: POTASSIUM CHLORIDE 20 MEQ/PKT PACKET GT SCH (15:00)
[2019-05-15] MEDS: IPRATROPIUM/ALBUTEROL SULFATE 3 ML AMPUL.NEB (DUONEB) INH SCH ×2 (15:34→21:40)
[2019-05-15] MEDS: IRON SUCROSE COMPLEX 100 MG in NS 100 ML IV SCH (16:12)
[2019-05-15] MEDS: NS IV SCH (16:16)
[2019-05-15] MEDS: AMIKACIN SULFATE IV SCH (16:16)
[2019-05-15 16:28] VITALS: BP_SYST 160
--- NOTE | 2019-05-15 16:30 | NUR ---
pratibha walker hanged at this time
[2019-05-15 16:47] VITALS: BP_SYST 160
--- NOTE | 2019-05-15 17:00 | NUR ---
amikacin iv given at this time.
--- NOTE | 2019-05-15 18:30 | NUR ---
[facility] ambulance came and about to give report but said they dont have acls to [facility] with ventilator. Jam charge nurse informed. and called Francisca to find another ambulance to [facility] with ventilator.
--- NOTE | 2019-05-15 18:50 | NUR ---
Called [facility], s/w [place]. ETA [phone]
--- NOTE | 2019-05-15 18:52 | NUR ---
turn to sides and repositioned at this time.
--- NOTE | 2019-05-15 19:30 | NUR ---
OPENING NOTE Received resting in bed w/ eyes open, no s/sx of distress noted. VSS and non-labored breathing on Ventilator. AMY mattress, seizure pads, bed locked to lowest position, bed alarm on, side rails up 3x, call light w/in reach. Feeding tube @ 50ml/hr, IVF at 50 ml/hr.
--- NOTE | 2019-05-15 19:35 | NUR ---
endorsed to incoming nurse Madiha BAR
[2019-05-15 20:00] VITALS: BP_SYST 115
--- NOTE | 2019-05-15 21:45 | NUR ---
Report given to Ginger BAR form [facility] ambulance
--- NOTE | 2019-05-15 22:00 | NUR ---
Discharge Report given to [facility], nurse Ginger. [place] of med records provided. Taken via gurney / ACLS on ventitalotor. Patient in stable condition, ID band removed. Femoral catheter in place, saline locked. Vanegas catheter in place. No belongings at bedside.
[2019-05-16] MEDS ORDERED: VANCOMYCIN HCL 750 MG in NS 250 ML IV SCH (10:00)
== END 2019-05-15 22:03 | DRG 720 ==
LOC: SED 20:40 → SIC 05-11 04:51 → STU 05-13 18:42
PROVIDERS: ADMIT Internal Medicine; ATTEND Internal Medicine
PROC: 5A1955Z Respiratory Ventilation, Greater than 96 Consecutive Hours (ICD-10-PCS; principal; 2019-05-11)
PROC: 30233N1 Transfusion of Nonautologous Red Blood Cells into Peripheral Vein, Percutaneous Approach (ICD-10-PCS; 2019-05-11)
PROC: 0DB68ZX Excision of Stomach, Via Natural or Artificial Opening Endoscopic, Diagnostic (ICD-10-PCS; 2019-05-12)
DX: A41.2 Sepsis due to unspecified staphylococcus (principal); J96.20 Acute and chronic respiratory failure, unspecified whether with hypoxia or hypercapnia; N17.0 Acute kidney failure with tubular necrosis; E43 Unspecified severe protein-calorie malnutrition; J95.851 Ventilator associated pneumonia; R65.21 Severe sepsis with septic shock; R57.1 Hypovolemic shock; G82.50 Quadriplegia, unspecified; B37.89 Other sites of candidiasis; Z99.11 Dependence on respirator [ventilator] status; K22.11 Ulcer of esophagus with bleeding; A41.89 Other specified sepsis; K29.70 Gastritis, unspecified, without bleeding; G40.909 Epilepsy, unspecified, not intractable, without status epilepticus; E78.5 Hyperlipidemia, unspecified; I10 Essential (primary) hypertension; D62 Acute posthemorrhagic anemia; R13.10 Dysphagia, unspecified; E87.0 Hyperosmolality and hypernatremia; I48.91 Unspecified atrial fibrillation; E87.2 Acidosis; K44.9 Diaphragmatic hernia without obstruction or gangrene; K29.81 Duodenitis with bleeding; G93.1 Anoxic brain damage, not elsewhere classified; I47.1 Supraventricular tachycardia; L89.899 Pressure ulcer of other site, unspecified stage; E87.6 Hypokalemia; B96.89 Other specified bacterial agents as the cause of diseases classified elsewhere; N39.0 Urinary tract infection, site not specified; Z93.0 Tracheostomy status; Z86.73 Personal history of transient ischemic attack (TIA), and cerebral infarction without residual deficits; Z79.82 Long term (current) use of aspirin; Z79.899 Other long term (current) drug therapy; Z93.1 Gastrostomy status; Z68.22 Body mass index [BMI] 22.0-22.9, adult
CPT/HCPCS: 36415; 36600; 43239; 71045; 80048; 80053; 80061; 80150; 80202-TC; 81000-TC; 82803-TC; 83605; 83735-TC; 83880; 84100-TC; 84443-TC; 84484; 85007; 85025; 85027; 85610-TC; 85730-TC; 86886; 86900; 86901; 86920; 87040-TC; 87070-TC; 87081; 87086; 87186-TC; 87205-TC; 93005; 93306; 94002; 94003; 94640; 94760; 96365; 96375; 99291; C1751; C9113; G0378; J0278; J0692; J0696; J0885; J1756; J1940; J1953; J1956; J2060; J2175; J2250; J2543; J2765; J3370; J3475; J3480; J3490; J7030; J7050; J7060; J7120; J7620; P9021

== ENCOUNTER 2019-07-09 02:17 | Inpatient (IN) | payer MEDICAID ==
[2019-07-09] VITALS (27 sets, daily range): BP systolic 44–136
[~2019-07-09] VITALS: Ht 152.4 cm; Wt 43.1 kg
[~2019-07-09 02:17] MED LIST: AMLO5TAB4 PEG; ASA81 PEG; CHLO473M12 MM; LEVE250T2 PEG; LIP10 PEG; METO50TA7 PEG; TOPI100T39 PEG; [UNRECOGNIZED DRUG - CODE] MC
--- NOTE | 2019-07-09 02:30 | NUR ---
Note undone in EDM - 07/09/19 at 0945 by BREONNA Pt arrives via EMS from [facility] r/t Temp 103.3, Hypotension and Tachycardia. Pt lethargic, obtunded per baseline, eyes open, Trach. G-Tube present and secure. Contractures to BLE. Dsg to right buttocks and sacrum, clean and secure r/t pressure ulcers. Pt Full Code.
--- NOTE | 2019-07-09 02:30 | NUR ---
Placed in room 6 . Placed on monitoring engineer, blood pressure machine and pulse oximeter. To gown for exam. Side rails up.
--- NOTE | 2019-07-09 02:30 | NUR ---
Note undone in EDM - 07/09/19 at 0943 by BREONNA Pt arrives via EMS from [facility] r/t Temp 103.3, Hypotension and Tachycardia. Pt lethargic, obtunded per baseline, eyes open, Vent dependent via trach. RT at bedside, Vent settings: A/C, R 14, PEEP 5, Vt 350 mL, FiO2 40%. G-Tube present and secure. Contractures to BLE. Dsg to right buttocks and sacrum, clean and secure r/t pressure ulcers. Pt Full Code.
--- NOTE | 2019-07-09 02:32 | NUR ---
ER at bedside examining patient.
--- NOTE | 2019-07-09 02:35 | NUR ---
Zenia rios in ED - 07/09/19 at 0426 by SDEDPR PLACED PT IN VENT W/ AC,RATE 17,TV 350,PEEP 5,FIO 5L/M
--- NOTE | 2019-07-09 02:35 | NUR ---
RT AT THE BEDSIDE, PLACED PT INTO VENTILATOR W/ AC,RATE 17,TV 350,PEEP 5,FIO 5L/M
--- NOTE | 2019-07-09 03:00 | NUR ---
Pt arrives via EMS from [facility] r/t Temp 103.3, Hypotension and Tachycardia. Pt lethargic, obtunded per baseline, eyes open, Trach. G-Tube present and secure. Contractures to BLE. Dsg to right buttocks and sacrum, clean and secure r/t pressure ulcers. Pt Full Code.
--- NOTE | 2019-07-09 03:00 | NUR ---
REPORT GIVEN TO IBETH BAR
--- NOTE | 2019-07-09 03:04 | NUR ---
XRAY PERFORMED AT THE BEDSIDE.
[2019-07-09] MEDS ORDERED: MULT-1089 GT (03:32)
[2019-07-09] MEDS ORDERED: ASCO500S10 GT (03:32)
[2019-07-09] MEDS ORDERED: CAT.1 GT (03:32)
[2019-07-09] MEDS ORDERED: ESOM40CA53 GT (03:32)
[2019-07-09] MEDS ORDERED: ACET325T53 GT (03:32)
[2019-07-09] MEDS ORDERED: DOCU-144 GT (03:32)
[2019-07-09] MEDS ORDERED: IPRA3AMP9 INH (03:32)
[2019-07-09] MEDS ORDERED: VITD2000 GT (03:32)
[2019-07-09] MEDS ORDERED: ZINC220T4 GT (03:32)
[2019-07-09] MEDS ORDERED: LEVE250T2 GT (03:32)
[2019-07-09] MEDS ORDERED: FER300L GT (03:32)
[2019-07-09] MEDS ORDERED: POTA20TA83 GT (03:32)
[2019-07-09] MEDS ORDERED: SUCR1TAB78 GT (03:32)
[2019-07-09] MEDS ORDERED: MOM GT (03:32)
--- NOTE | 2019-07-09 03:33 | NUR ---
Medication reconciliation completed with information provided by MIRELLA CALLEJAS. Any prior medication reconciliation on file was reviewed and corrected.
--- NOTE | 2019-07-09 03:45 | NUR ---
Unsuccessful right EJ central line placement attempt per Dr. Barber.
[2019-07-09 03:58] LABS: CALCIUM 9.6 mg/dL (8.4-11.0); CREATININE 1.07 mg/dL (0.55-1.30); HEMATOCRIT 28.5 % (36-48); HEMOGLOBIN 9.2 g/dL (12.0-16.0); MEAN CORPUSCULAR HEMOGLOBIN 28 pg (27-31); MEAN CORPUSCULAR HGB CONC 32 % (32-36); MEAN CORPUSCULAR VOLUME 86 fL (79.0-98.0); PLATELET COUNT (AUTO) 469 K/uL (130-430); POTASSIUM 3.2 mmol/L (3.5-5.1); RED BLOOD CELL COUNT(AUTO) 3.32 MIL/uL (4.2-6.2); RED CELL DISTRIBUTION WIDTH 15.6 % (9.0-15.0)
[2019-07-09 04:01] LABS: PROTHROMBIN TIME 10.5 SECS (9.5-12.5)
[2019-07-09 04:03] LABS: ALBUMIN 1.8 g/dL (3.4-4.8); TOTAL BILIRUBIN 0.3 mg/dL (0.0-1.0)
[2019-07-09 04:04] LABS: WHITE BLOOD COUNT (AUTO) 30.7 K/uL (4.8-10.8)
[2019-07-09 04:27] LABS: BAND % (MANUAL) 39 % (0-6); LYMPHOCYTES % (MANUAL) 3 % (20-46); MONOCYTES % (MANUAL) 1 % (0-11)
[2019-07-09 04:28] LABS: BASOPHILS % (MANUAL) 0 % (0-2); EOSINOPHILS % (MANUAL) 0 % (0-7); METAMYELOCYTES % 2 % (0-0)
--- NOTE | 2019-07-09 05:00 | NUR ---
RT at bedside, Vent settings changed: A/C, R 14, PEEP 5, Vt 350 mL, FiO2 40%.
--- NOTE | 2019-07-09 05:06 | NUR ---
Dr. Barber at bedside to place a femoral central line. Pt B/P 68/30, P 104. Dr. Barber aware. No new orders at this time.
--- NOTE | 2019-07-09 05:15 | NUR ---
Successful right femoral central line placed per Dr. Barber.
[2019-07-09] MEDS ORDERED: NACL 0.9% 1,000 ML IV ONE (05:22)
[2019-07-09] MEDS ORDERED: VANCOMYCIN HCL 1,000 MG in D5W 250 ML IV ONE (05:30)
[2019-07-09] MEDS ORDERED: LEVOFLOXACIN 500 MG/D5W 100 ML IV ONE (05:45)
[2019-07-09] MEDS: NACL 0.9% 1,000 ML IV ONE ×2 (05:56→06:51)
[2019-07-09] MEDS ORDERED: NACL 0.9% 1,000 ML IV SCH (06:00)
--- NOTE | 2019-07-09 06:00 | NUR ---
Pt B/P 75/38, P 100. Dr. Barber made aware and at bedside.
[2019-07-09] MEDS ORDERED: NOREPINEPHRINE BITARTRATE 4 MG in D5W 246 ML IV PRN (07:15)
[2019-07-09] MEDS ORDERED: VANCOMYCIN HCL 1000 MG/VIAL IV ONE (07:21)
[2019-07-09] MEDS ORDERED: NOREPINEPHRINE 4 MG/4 ML VIAL IV ONE (07:26)
--- NOTE | 2019-07-09 07:35 | NUR ---
B/P 84/48, P 88, T 97.1, SPO2 99% on trach and Vent. No change in Vent settings. Dr. Barber notified about B/P. New order to start Levophed drip. Levophed drip initiated at 10 mcg/min via Right femoral central line.
--- NOTE | 2019-07-09 07:40 | NUR ---
B/P 117/95, P 86. Levophed drip titrated to 2 mcg/min.
--- NOTE | 2019-07-09 07:50 | NUR ---
CONSULT PULMO. DR. JETT CALLED SPOKE TO [facility] DIALED [phone] ORDERED BY Rad ANGEL
--- NOTE | 2019-07-09 07:51 | NUR ---
CONSULT ID DR. FALK CALLED SPOKE TO [facility] DIALED [phone] ORDERED BY Rad ANGEL
--- NOTE | 2019-07-09 08:10 | NUR ---
Transfer to ICU 4 via ACLS protocol. Licensed nurse present. Central line present no signs or symptoms of infiltration. Report given to French BAR.
--- NOTE | 2019-07-09 08:15 | NUR ---
ICU Opening Note Received patient via hospital bed, on ventilator, RT at bedside. Patient resting in bed, no signs or symptoms of acute distress noted. Received bedside report from endorsing RN for continuation of care. Bed locked in lowest position and bed alarm on. Fall and safety precautions in place.
[2019-07-09] MEDS: HEPARIN SODIUM,PORCINE 5000 UNITS/ML VIAL SUBCUT SCH ×2 (10:33→22:05)
[2019-07-09] MEDS: LEVOFLOXACIN 500 MG/D5W 100 ML IV SCH (11:55)
--- NOTE | 2019-07-09 12:30 | NUR ---
Dr. De Paz in to see patient. New orders received.
[2019-07-09] MEDS ORDERED: KCL 40 mEq in 100 mL (PREMIX) 100 ML IV ONE (12:45)
--- NOTE | 2019-07-09 12:49 | NUR ---
Dr. Muñoz in to see patient. New orders received.
[2019-07-09 13:00] LABS: BASOPHILS # (AUTO) 0.1 K/uL (0.0-0.2); BASOPHILS % (AUTO) 0.4 % (0.0-2.0); HEMATOCRIT 23.8 % (36-48); HEMOGLOBIN 7.8 g/dL (12.0-16.0); LYMPHOCYTES # (AUTO) 0.7 K/uL (1.0-5.5); LYMPHOCYTES % (AUTO) 2.5 % (20.5-51.5); MEAN CORPUSCULAR HEMOGLOBIN 28 pg (27-31); MEAN CORPUSCULAR HGB CONC 33 % (32-36); MEAN CORPUSCULAR VOLUME 86 fL (79.0-98.0); MONOCYTES # (AUTO) 0.2 K/uL (0.0-1.0); MONOCYTES % (AUTO) 0.8 % (1.7-9.3); NEUTROPHILS # (AUTO) 24.8 K/uL (1.8-7.7); NEUTROPHILS % (AUTO) 96.3 % (40.0-70.0); PLATELET COUNT (AUTO) 401 K/uL (130-430); RED BLOOD CELL COUNT(AUTO) 2.77 MIL/uL (4.2-6.2); RED CELL DISTRIBUTION WIDTH 15.6 % (9.0-15.0); WHITE BLOOD COUNT (AUTO) 25.8 K/uL (4.8-10.8)
[2019-07-09] MEDS ORDERED: ALBUMIN HUMAN 25% 100 ML IV ONE (13:00)
[2019-07-09 13:11] LABS: CALCIUM 8.3 mg/dL (8.4-11.0); CREATININE 0.96 mg/dL (0.55-1.30)
[2019-07-09 13:14] LABS: POTASSIUM 2.9 mmol/L (3.5-5.1)
[2019-07-09] MEDS ORDERED: cloNIDine HCL 0.1 MG TABLET GT PRN (13:15)
[2019-07-09] MEDS ORDERED: IPRATROPIUM/ALBUTEROL SULFATE 3 ML AMPUL.NEB (DUONEB) INH PRN (13:15)
[2019-07-09] MEDS ORDERED: ACETAMINOPHEN 325 MG TABLET GT PRN (13:15)
[2019-07-09] MEDS ORDERED: POTASSIUM CHLORIDE 20 MEQ/PKT PACKET PO ONE (13:30)
[2019-07-09] MEDS ORDERED: PANTOPRAZOLE SODIUM 40 MG/VIAL (PROTONIX) IVP ONE (13:30)
[2019-07-09 13:44] LABS: TOTAL IRON BIND. CAPACITY 174 ug/dL (250-450)
[2019-07-09] MEDS ORDERED: MILK OF MAGNESIA 30 ML UDC GT ONE (13:45)
[2019-07-09] MEDS ORDERED: levETIRAcetam 500 MG TABLET GT ONE (13:45)
[2019-07-09] MEDS ORDERED: SUCRALFATE 1 GM TABLET GT ONE (13:45)
[2019-07-09 13:46] LABS: ALBUMIN 1.3 g/dL (3.4-4.8); TOTAL BILIRUBIN 0.2 mg/dL (0.0-1.0)
[2019-07-09 13:47] LABS: PHOSPHORUS 2.9 mg/dL (2.7-4.5)
[2019-07-09] MEDS: LR 1,000 ML IV SCH (13:56)
[2019-07-09 14:00] LABS: BILIRUBIN,DIRECT 0.1 mg/dL (0.0-0.3)
[2019-07-09] MEDS ORDERED: MAGNESIUM SULFATE 1 GM in NS 100 ML IV ONE (14:00)
[2019-07-09] MEDS ORDERED: EPOETIN ALFA 4,000 UNITS/ML VIAL SUBCUT ONE (14:00)
[2019-07-09] MEDS: PIPERACILLIN/TAZO 3.375/DEX-IS 50 ML IV SCH ×3 (14:25→23:57)
--- NOTE | 2019-07-09 14:35 | NUR ---
WOUND EVALUATION: Late note for 1435 secondary to patient care. Wound Consult received from Dr. Muñoz. Thank you, Dr. Muñoz, for the consult. Patient received in a [place] Bed with an IsoFlex AMY mattress, awake, non-verbal, non-responsive to verbal commands. Patient is unable to turn in bed independently. Past Medical History: Hemorrhagic Stroke, Chronic Respiratory Failure with tracheostomy and ventilator dependence, G-tube placement, History of GI bleeding secondary to severe Esophagitis, Sepsis, Ventilator Associated Pneumonia, Metabolic Acidosis, Seizure disorder, Hyperlipidemia, Hypertension, Anoxic Encephalopathy, Dysphagia, on G-tube feeding, Severe Protein Malnutrition, PSVT, Decubitus Ulcerations. Recent Labs: WBC 25.8, RBC 2.77, hemoglobin 7.8, hematocrit 23.8, sodium 129, potassium 2.9, chloride 97, BUN 45, creatinine 0.96, GFR 62, glucose 160, calcium 8.3, AST 41, alkaline phosphatase 143, albumin 1.3. Blood culture results 2 in progress. MRSA screen results in progress. Intrinsic factors that delay wound healing: Chronic Respiratory failure, Hyperglycemia, Hypoalbuminemia, Anoxic Encephalopathy, Severe Protein Malnutrition. Extrinsic factors that delay wound healing: Immobility, limited ability to offload pressure areas from turning (bilateral hip and several Sacral pressure ulcers). Wound Assessment: 1. Right Lateral Hip over Greater Trochanter: Stage IV pressure ulcer, present on admission. Wound bed has 50% yellow slough, 40% pink tissue, 10% red tissue. Bone is palpable. No odor, scant yellow purulent drainage. Periwound has pink scar tissue. Undermining present from 312 o'clock (0.3 cm at 3 o'clock, 0.5 cm at 6 o'clock, 0.8 cm 9 o'clock, 0.5 cm a 12 o'clock). Wound measures 3.8 cm x 6.5 cm x 1.5 cm. Recommend: Cleanse wound with normal saline. Apply moisture barrier cream to maria luisa-wound. Apply Venelex ointment to wound bed. Pack wound with 1/4 inch Iodoform packing strip. Cover site with a foam dressing. Perform wound care daily, and as needed for dressing soiling or dislodgement. 2. Left Lateral Hip over Greater Trochanter: Unstageable pressure ulcer, present on admission. Wound bed has 60% black slough, 35% yellow slough, 5% red tissue. No odor, scant sanguineous drainage. Periwound has scar tissue. Surrounding tissue has dark discolored skin and scar tissue. Wound measures 1.9 cm x 2.4 cm. Recommend: Cleanse wound with normal saline. Apply moisture barrier cream to maria luisa-wound. Apply Venelex ointment to wound bed. Cover site with a foam dressing. Perform wound care daily, and as needed for dressing soiling or dislodgement. 3. Right Upper Sacral area: Unstageable pressure ulcer, present on admission. Wound bed has 95% yellow slough, 5% pink tissue. No odor, scant yellow purulent drainage. Periwound has scar tissue. Surrounding tissue has scar tissue. Wound measures 1.5 cm x 1.7 cm x 0.2 cm. 4. Sacral-Coccygeal area: Unstageable pressure ulcer, present on admission. Wound bed has 95% yellow slough, 5% pink tissue. No odor, scant yellow purulent drainage. Periwound has scar tissue. Surrounding tissue has scar tissue. Wound measures 2.0 cm x 2.2 cm. 5. Sacral-Coccygeal area, Right Lateral and Inferior to site 4: Unstageable pressure ulcer, present on admission. Wound bed has 95% yellow slough, 5% pink tissue. No odor, scant yellow purulent drainage. Periwound has scar tissue. Surrounding tissue has scar tissue. Wound measures 1.0 cm x 1.5 cm. Recommend: Cleanse wounds with normal saline. Apply moisture barrier cream to maria luisa-wounds. Apply Venelex ointment to wound beds. Cover sites with a Sacral foam dressing. Perform wound care daily, and as needed for dressing soiling or dislodgement. 6. Left Lateral Malleolus: Blanchable erythema, present on admission. 7. Left First Metatarsal Head, Medial Aspect: Blanchable erythema, present on admission. 8. Right Lateral Malleolus: Blanchable erythema, present on admission. 9. Right First Metatarsal Head, Medial Aspect: Blanchable erythema, present on admission. Recommend: Offload areas at all times: Keep a pillow between bilateral knees and ankles at all times. When turning patient, place a pillow underneath lower leg. Do not allow any portion of knees, ankles heels or feet to touch bed or other surfaces at any time. Also recommend: Reposition patient side to side only every 2 hours with pillow support and off-load pressure areas with pillows for pressure re-distribution. Keep a pillow between bilateral knees and ankles at all times. When turning patient, place a pillow underneath lower leg, pelvis, and behind back (slide patient anteriorly off of hip and let back rest on pillow). Do not allow any portion of knees, ankles heels or feet to touch bed or other surfaces at any time. Perform skin care and monitor skin integrity Q shift. Use moisture barrier cream on buttocks and other moisture susceptible areas QID and as needed for soiling. Initiate low air-loss therapy.
--- NOTE | 2019-07-09 14:35 | NUR ---
Wound Care/CHG Wound care performed with paper steamer Tenzin. CHG bath given and bed linens changed. No signs or symptoms of acute distress noted. Patient tolerated well.
--- NOTE | 2019-07-09 15:00 | NUR ---
Dr. Sal in to see patient. New orders received.
[2019-07-09] MEDS: SOD FERRIC GLUC COMPLEX/SUC 125 MG in NS 100 ML IV SCH (15:35)
--- NOTE | 2019-07-09 16:49 | NUR ---
Program Director Scouting Note MILK COLLECTOR conducted a Program Director Scouting ICU and Discharge Plan Assessment MILK COLLECTOR phoned [facility] subacute, . They confirmed patient is a resident and is full code. Phoned patient's son who resides in [place], Tony Archuleta [phone]. He plans for patient to return to [facility] upon discharge. Discussed code status. He stated he has just completed and mailed a form to [facility] for patient to be DNR and "Comfort Measures Only". Discussed that a physician may be calling him to confirm this and may discuss hospice care while at [facility]. Patient has arrangements with [facility] in [place], . They will coordinate with a [place] mortuary; Tony does not know the name. Notified ICU Staff of above. Program Director Scouting/Case Management/Seismology Technical Officer will remain available.
[2019-07-09] MEDS: SUCRALFATE 1 GM TABLET GT SCH ×2 (18:27→22:01)
--- NOTE | 2019-07-09 19:20 | NUR ---
Endorsement Endorsed bedside report to oncoming RN using SBAR approach for continuation of care.
--- NOTE | 2019-07-09 20:00 | NUR ---
LETHARGIC. RESPONDS TO NOXIOUS STIMULI. TRACH TO VENT. SUCTIONED WITH MOD AMOUNT OF THIN WHITE MUCUS OBTAINED. ORAL CARE GIVEN. CONTRACTED. GT CLAMPED. RIGHT FEMORAL TLC DRSG D/I. ON LEVOPHED DRIP AT 4 MCG/MIN. LR AT 100CC/HR. LEARY CATH PATENT DRAINING CLEAR YELLOW URINE TO GRAVITY. SR. CONTACT ISOLATION OBSERVED.
--- NOTE | 2019-07-09 22:00 | NUR ---
HS CARE. SUCTIONED. TURNED.
[2019-07-09] MEDS: levETIRAcetam 500 MG TABLET GT SCH (22:02)
[2019-07-09] MEDS: METOPROLOL TARTRATE 25 MG TABLET GT SCH (22:02)
[2019-07-09] MEDS: PANTOPRAZOLE SODIUM 40 MG/VIAL (PROTONIX) IVP SCH (22:03)
[2019-07-09] MEDS: CHLORHEXIDINE GLUCONATE 15 ML/DOSE, 480 ML MM SCH (22:03)
--- NOTE | 2019-07-09 22:45 | NUR ---
GT FEEDING WITH NEPRO 1.8 STARTED AT 45CC/HR.
[2019-07-10] VITALS (35 sets, daily range): BP systolic 96–138
--- NOTE | 2019-07-10 | NUR ---
RESIDUAL CHECK 0/ PROSOURCE 1 PACKET GIVEN VIA GT. SUCTIONED. TURNED.
[2019-07-10] MEDS: LR 1,000 ML IV SCH ×3 (01:11→23:11)
--- NOTE | 2019-07-10 02:00 | NUR ---
DOZES ON AND OFF. SUCTIONED WITH SAME RESULTS. TURNED AND REPOSITIONED.
--- NOTE | 2019-07-10 04:00 | NUR ---
SLEPT FOR LONG PERIODS OF TIME. LEVOPHED STILL AT 4 MCG/MIN. SUCTIONED. TURNED. RESIDUAL CHECK 0.
[2019-07-10 05:37] LABS: BASOPHILS % (AUTO) 0.1 % (0.0-2.0); EOSINOPHILS % (AUTO) 0.1 % (0.0-4.0); HEMOGLOBIN 7.1 g/dL (12.0-16.0); LYMPHOCYTES # (AUTO) 0.7 K/uL (1.0-5.5); LYMPHOCYTES % (AUTO) 3.5 % (20.5-51.5); MEAN CORPUSCULAR HEMOGLOBIN 28 pg (27-31); MEAN CORPUSCULAR HGB CONC 33 % (32-36); MEAN CORPUSCULAR VOLUME 87 fL (79.0-98.0); MONOCYTES # (AUTO) 0.2 K/uL (0.0-1.0); MONOCYTES % (AUTO) 0.9 % (1.7-9.3); NEUTROPHILS # (AUTO) 20.4 K/uL (1.8-7.7); NEUTROPHILS % (AUTO) 95.4 % (40.0-70.0); PLATELET COUNT (AUTO) 364 K/uL (130-430); RED CELL DISTRIBUTION WIDTH 15.4 % (9.0-15.0); WHITE BLOOD COUNT (AUTO) 21.3 K/uL (4.8-10.8)
[2019-07-10 05:48] LABS: HEMATOCRIT 21.7 % (36-48)
[2019-07-10] MEDS: PIPERACILLIN/TAZO 3.375/DEX-IS 50 ML IV SCH ×4 (05:54→23:12)
[2019-07-10 05:55] LABS: ALBUMIN 1.5 g/dL (3.4-4.8); CALCIUM 8.6 mg/dL (8.4-11.0); CREATININE 0.79 mg/dL (0.55-1.30); PHOSPHORUS 2.5 mg/dL (2.7-4.5); POTASSIUM 3.4 mmol/L (3.5-5.1); TOTAL BILIRUBIN 0.2 mg/dL (0.0-1.0)
--- NOTE | 2019-07-10 06:00 | NUR ---
AM CARE. 1 MOD SOFT BROWN PASTY STOOL DEFECATED. CLEANED. WEI-CARE DONE. WOUNDS LEAKING. SUCTIONED AND TURNED Q2 HRS AND PRN. UO 850CC. REMAINS IN GUARDED CONDITION.
--- NOTE | 2019-07-10 06:05 | NUR ---
DR. RIKI RECIO PAGED AT THIS TIME REGARDING CRITICAL LABS. SPOKE WITH THE EXCHANGE.
--- NOTE | 2019-07-10 06:11 | NUR ---
DR. RIKI RECIO MADE AWARE OF CRITICAL H/H AT THIS TIME. PER GIVE THE SCHEDULED DOSE OF IRON. WILL CONTINUE TO MONITOR PT.
--- NOTE | 2019-07-10 07:15 | NUR ---
Opening Note Received bedside report from endorsing RN for continuation of care. Received patient resting in bed, on ventilator. No signs or symptoms of acute distress noted. Bed locked in lowest position and bed alarm on. Fall and safety precautions in place.
--- NOTE | 2019-07-10 08:51 | NUR ---
Nutrition Update Fortunato Scale 10 noted. Pt admitted for pneumonia, chronic respiratory failure. Diet: Nepro at 45 ml/hr x20 hours, Prosource daily, Free Water Flush: unspecified via GT BMI: 18.7 kg/m2 RD to follow per nutrition care standards.
[2019-07-10] MEDS ORDERED: POTASSIUM CHLORIDE 20 MEQ TAB.PRT.SR GT SCH (09:00)
[2019-07-10] MEDS: LEVOFLOXACIN 500 MG/D5W 100 ML IV SCH (09:31)
[2019-07-10] MEDS: PANTOPRAZOLE SODIUM 40 MG/VIAL (PROTONIX) IVP SCH ×2 (09:32→20:35)
[2019-07-10] MEDS: POTASSIUM CHLORIDE 20 MEQ/PKT PACKET GT SCH (09:32)
[2019-07-10] MEDS: ASCORBIC ACID 500 MG TABLET GT SCH (09:33)
[2019-07-10] MEDS: MILK OF MAGNESIA 30 ML UDC GT SCH (09:33)
[2019-07-10] MEDS: SUCRALFATE 1 GM TABLET GT SCH ×4 (09:33→20:35)
[2019-07-10] MEDS: FERROUS SULFATE 300 MG/5 ML UDC GT SCH (09:33)
[2019-07-10] MEDS: levETIRAcetam 500 MG TABLET GT SCH ×2 (09:33→20:35)
[2019-07-10] MEDS: METOPROLOL TARTRATE 25 MG TABLET GT SCH ×2 (09:34→20:36)
[2019-07-10] MEDS: HEPARIN SODIUM,PORCINE 5000 UNITS/ML VIAL SUBCUT SCH ×2 (09:35→20:51)
[2019-07-10] MEDS: BALSAM PERU/CASTOR OIL 60 GM OINT...G. TP SCH (09:36)
[2019-07-10] MEDS: CHOLECALCIFEROL (VITAMIN D3) 2,000 UNIT TABLET GT SCH (09:36)
[2019-07-10] MEDS: CHLORHEXIDINE GLUCONATE 15 ML/DOSE, 480 ML MM SCH ×2 (09:37→20:36)
[2019-07-10] MEDS ORDERED: METOPROLOL TARTRATE 25 MG TABLET ONE (09:54)
[2019-07-10] MEDS ORDERED: VANCOMYCIN HCL 750 MG in NS 250 ML IV SCH ×2 (10:00)
--- NOTE | 2019-07-10 10:59 | NUR ---
Dr. De Paz at bedside examining patient. New orders received.
--- NOTE | 2019-07-10 11:30 | NUR ---
Wound Care/CHG Wound care performed per wound care guidelines. CHG bath given and bed linens changed. No signs or symptoms of acute distress noted. Patient tolerated well.
--- NOTE | 2019-07-10 13:39 | NUR ---
Dietitian Recommendations * Recommend Nepro at 30 ml/hr, Brad BID, Free Water Flush: 150 ml Q4h via GT Provides: 1456 kcal/day, 63 gm protein/day, and 1423 ml free water/day Meets: 127% of estimated caloric needs and 97% of lower end of estimated protein needs LP, RD Please refer to Nutrition Assessment for details. Addendum: 07/10/19 at [address] Amended: Links added. Addendum: 07/10/19 at [address] PLEASE DISREGARD NOTE.
--- NOTE | 2019-07-10 13:45 | NUR ---
Dietitian Recommendations * Recommend Nepro at 30 ml/hr, Brad BID, Prosource daily, Free Water Flush: 150 ml Q4h via GT Provides: 1516 kcal/day, 93 gm protein/day, and 1423 ml free water/day Meets: 132% of estimated caloric needs and 108% of upper end of estimated protein needs LP, RD Please refer to Nutrition Assessment for details. Addendum: 07/10/19 at [address] Amended: Links added.
[2019-07-10] MEDS: SOD FERRIC GLUC COMPLEX/SUC 125 MG in NS 100 ML IV SCH (14:19)
--- NOTE | 2019-07-10 15:47 | NUR ---
BT INITIATION: Consent signed per telephone consent from patient's son agreeing to administration of blood. Confirmed consent with two RNs. Blood has been type and crossmatched. Blood sent from blood bank. Information on unit of blood checked against patient wristband at bedside by two nurses. All information matches. Patient or responsible alliance party informed of potential complications associated with blood transfusion. Informed of possible transfusion reaction symptoms. Aware of need to notify nurse at once of itching, shortness of breath, flushing, feeling of impending doom, or other symptoms not previously present. Vital signs taken within 5 minutes prior to initiation of transfusion. RN will remain with patient for first 15 minutes of transfusion at which time vital signs will be re-assessed. Addendum: 07/10/19 at 1921 by Shirley Larios RN Incorrect time. BT Initiation at 174.
--- NOTE | 2019-07-10 17:00 | NUR ---
Dr. Muñoz in to see patient. New orders received.
[2019-07-10] MEDS: NAPH,MB-DB/K PH,MBDB 250 MG TAB GT SCH ×2 (17:25→20:35)
--- NOTE | 2019-07-10 19:06 | NUR ---
Endorsement Endorsed bedside report to oncoming RN using SBAR approach for continuation of care.
--- NOTE | 2019-07-10 19:10 | NUR ---
PM SHIFT ASSESSMENT Pt is responds to painful stimuli. Pt is trach to vent, tolerating current vent settings. Wounds noted, dressing in place. Central line noted with IVF, Levophed and 1UPRBC infusing, no signs of infiltration noted. Vanegas catheter in place and draining to gravity. Safety precautions in place, call light within reach. Will continue to monitor.
[2019-07-11] VITALS (32 sets, daily range): BP systolic 85–132
[2019-07-11 05:33] LABS: BASOPHILS % (AUTO) 0.3 % (0.0-2.0); EOSINOPHILS # (AUTO) 0.1 K/uL (0.0-0.4); EOSINOPHILS % (AUTO) 0.5 % (0.0-4.0); HEMATOCRIT 25.8 % (36-48); HEMOGLOBIN 8.6 g/dL (12.0-16.0); LYMPHOCYTES # (AUTO) 0.6 K/uL (1.0-5.5); LYMPHOCYTES % (AUTO) 5.4 % (20.5-51.5); MEAN CORPUSCULAR HEMOGLOBIN 28 pg (27-31); MEAN CORPUSCULAR HGB CONC 33 % (32-36); MEAN CORPUSCULAR VOLUME 84 fL (79.0-98.0); MONOCYTES # (AUTO) 0.3 K/uL (0.0-1.0); MONOCYTES % (AUTO) 2.2 % (1.7-9.3); NEUTROPHILS # (AUTO) 10.9 K/uL (1.8-7.7); NEUTROPHILS % (AUTO) 91.6 % (40.0-70.0); PLATELET COUNT (AUTO) 281 K/uL (130-430); RED BLOOD CELL COUNT(AUTO) 3.07 MIL/uL (4.2-6.2); RED CELL DISTRIBUTION WIDTH 15.9 % (9.0-15.0); WHITE BLOOD COUNT (AUTO) 11.9 K/uL (4.8-10.8)
[2019-07-11] MEDS: PIPERACILLIN/TAZO 3.375/DEX-IS 50 ML IV SCH ×4 (05:33→23:57)
[2019-07-11 06:06] LABS: INR 1.1 (0.8-1.2); PROTHROMBIN TIME 10.7 SECS (9.5-12.5)
[2019-07-11 06:15] LABS: CALCIUM 8.2 mg/dL (8.4-11.0)
[2019-07-11 06:16] LABS: ALBUMIN 1.2 g/dL (3.4-4.8); CREATININE 0.59 mg/dL (0.55-1.30); PHOSPHORUS 2.6 mg/dL (2.7-4.5); TOTAL BILIRUBIN 0.2 mg/dL (0.0-1.0)
[2019-07-11 06:18] LABS: POTASSIUM 2.4 mmol/L (3.5-5.1)
[2019-07-11] MEDS ORDERED: POTASSIUM CHLORIDE 20 MEQ/PKT PACKET PO ONE (07:10)
--- NOTE | 2019-07-11 07:24 | NUR ---
Opening Note Received plan of care via sbar from endorsing nurse Nehal BAR. Completed patient round.
--- NOTE | 2019-07-11 07:25 | NUR ---
ENDORSEMENT Pt care endorsed to DIPIKA Ramirez using nursing SBAR.
[2019-07-11] MEDS: CHOLECALCIFEROL (VITAMIN D3) 2,000 UNIT TABLET GT SCH (08:59)
[2019-07-11] MEDS: SUCRALFATE 1 GM TABLET GT SCH ×4 (08:59→20:47)
[2019-07-11] MEDS: levETIRAcetam 500 MG TABLET GT SCH ×2 (08:59→20:46)
[2019-07-11] MEDS: NAPH,MB-DB/K PH,MBDB 250 MG TAB GT SCH ×4 (08:59→20:46)
[2019-07-11] MEDS: METOPROLOL TARTRATE 25 MG TABLET GT SCH ×2 (09:00→21:00)
[2019-07-11] MEDS: PANTOPRAZOLE SODIUM 40 MG/VIAL (PROTONIX) IVP SCH ×2 (09:00→20:46)
[2019-07-11] MEDS: MILK OF MAGNESIA 30 ML UDC GT SCH (09:00)
[2019-07-11] MEDS: FERROUS SULFATE 300 MG/5 ML UDC GT SCH (09:00)
[2019-07-11] MEDS: LEVOFLOXACIN 500 MG/D5W 100 ML IV SCH (09:01)
[2019-07-11] MEDS: POTASSIUM CHLORIDE 20 MEQ/PKT PACKET GT SCH (09:01)
[2019-07-11] MEDS: CHLORHEXIDINE GLUCONATE 15 ML/DOSE, 480 ML MM SCH ×2 (09:02→21:05)
[2019-07-11] MEDS: BALSAM PERU/CASTOR OIL 60 GM OINT...G. TP SCH (09:03)
[2019-07-11] MEDS: HEPARIN SODIUM,PORCINE 5000 UNITS/ML VIAL SUBCUT SCH ×2 (09:04→21:04)
[2019-07-11] MEDS: ASCORBIC ACID 500 MG TABLET GT SCH (09:07)
--- NOTE | 2019-07-11 14:00 | NUR ---
Completed wound care as per consult order. Patient tolerated procedure well without complaints or complications.
[2019-07-11] MEDS: SOD FERRIC GLUC COMPLEX/SUC 125 MG in NS 100 ML IV SCH (14:57)
[2019-07-11] MEDS: NACL 0.9% 1,000 ML IV SCH (14:59)
--- NOTE | 2019-07-11 15:22 | NUR ---
Received call from Dr. Saucedo. Reported potassium. Wants stat Potassium check.
--- NOTE | 2019-07-11 19:10 | NUR ---
PM SHIFT ASSESSMENT Pt is responds to painful stimuli. Pt is trach to vent, tolerating current vent settings. Wounds noted, dressing in place. Central line noted with IVF, Levophed and 1UPRBC infusing, no signs of infiltration noted. Vanegas catheter in place and draining to gravity. Gtube in place with feeding infusing. Safety precautions in place, call light within reach. Will continue to monitor.
--- NOTE | 2019-07-11 19:15 | NUR ---
Closing Note Provided plan of care via sbar to receiving nurse Nehal BAR. Completed bedside round.
[2019-07-11] MEDS ORDERED: POTASSIUM CHLORIDE 20 MEQ/PKT PACKET GT ONE (20:00)
[2019-07-11] MEDS ORDERED: DIGOXIN 0.5 MG/2 ML AMP IVP SCH (20:30)
[2019-07-11] MEDS: MAGNESIUM OXIDE 400 MG TABLET GT SCH (20:46)
[2019-07-11] MEDS: DILTIAZEM HCL 60 MG TABLET GT SCH ×2 (20:47→23:58)
[2019-07-11] MEDS: FLUCONAZOLE 200 mg/ NS 100 ML IV SCH (20:48)
[2019-07-11] MEDS ORDERED: DILTIAZEM HCL 60 MG TABLET ONE (20:50)
--- NOTE | 2019-07-11 21:03 | NUR ---
CONSULT CARDIO Paged Dr. Joiner's answering service for morning consult Spoke to Cait [phone]
[2019-07-11] MEDS: LOPERAMIDE HCL 2 MG CAPSULE PO PRN (23:57)
[2019-07-12] VITALS (22 sets, daily range): BP systolic 86–154
[2019-07-12 05:48] LABS: BASOPHILS % (AUTO) 0.3 % (0.0-2.0); EOSINOPHILS % (AUTO) 0.7 % (0.0-4.0); HEMATOCRIT 24.9 % (36-48); HEMOGLOBIN 8.2 g/dL (12.0-16.0); LYMPHOCYTES # (AUTO) 0.8 K/uL (1.0-5.5); LYMPHOCYTES % (AUTO) 11.1 % (20.5-51.5); MEAN CORPUSCULAR HEMOGLOBIN 28 pg (27-31); MEAN CORPUSCULAR HGB CONC 33 % (32-36); MEAN CORPUSCULAR VOLUME 87 fL (79.0-98.0); MONOCYTES # (AUTO) 0.3 K/uL (0.0-1.0); NEUTROPHILS # (AUTO) 5.8 K/uL (1.8-7.7); NEUTROPHILS % (AUTO) 82.9 % (40.0-70.0); PLATELET COUNT (AUTO) 288 K/uL (130-430); RED BLOOD CELL COUNT(AUTO) 2.88 MIL/uL (4.2-6.2); RED CELL DISTRIBUTION WIDTH 15.4 % (9.0-15.0)
[2019-07-12] MEDS: PIPERACILLIN/TAZO 3.375/DEX-IS 50 ML IV SCH ×2 (05:51→13:09)
[2019-07-12] MEDS: DILTIAZEM HCL 60 MG TABLET GT SCH ×3 (05:52→17:14)
[2019-07-12 06:52] LABS: ALBUMIN 1.1 g/dL (3.4-4.8); CALCIUM 8.2 mg/dL (8.4-11.0); CREATININE 0.66 mg/dL (0.55-1.30); POTASSIUM 3.7 mmol/L (3.5-5.1); TOTAL BILIRUBIN 0.2 mg/dL (0.0-1.0)
--- NOTE | 2019-07-12 07:10 | NUR ---
AM Endorsement Received shift report from león BAR
--- NOTE | 2019-07-12 07:25 | NUR ---
ENDORSEMENT Pt care endorsed to dayshift RN using nursing SBAR.
[2019-07-12] MEDS: SUCRALFATE 1 GM TABLET GT SCH ×4 (08:38→20:42)
[2019-07-12] MEDS: CHOLECALCIFEROL (VITAMIN D3) 2,000 UNIT TABLET GT SCH (08:38)
[2019-07-12] MEDS: ASCORBIC ACID 500 MG TABLET GT SCH (08:38)
[2019-07-12] MEDS: levETIRAcetam 500 MG TABLET GT SCH ×2 (08:38→20:43)
[2019-07-12] MEDS: MAGNESIUM OXIDE 400 MG TABLET GT SCH ×2 (08:39→20:43)
[2019-07-12] MEDS: FERROUS SULFATE 300 MG/5 ML UDC GT SCH (08:40)
[2019-07-12] MEDS: METOPROLOL TARTRATE 25 MG TABLET GT SCH ×2 (08:40→20:48)
[2019-07-12] MEDS: PANTOPRAZOLE SODIUM 40 MG/VIAL (PROTONIX) IVP SCH ×2 (08:40→20:43)
[2019-07-12] MEDS: MILK OF MAGNESIA 30 ML UDC GT SCH (08:40)
[2019-07-12] MEDS: POTASSIUM CHLORIDE 20 MEQ/PKT PACKET GT SCH ×2 (08:41→10:24)
[2019-07-12] MEDS: HEPARIN SODIUM,PORCINE 5000 UNITS/ML VIAL SUBCUT SCH ×2 (08:42→20:46)
[2019-07-12] MEDS: BALSAM PERU/CASTOR OIL 60 GM OINT...G. TP SCH (08:44)
[2019-07-12] MEDS: CHLORHEXIDINE GLUCONATE 15 ML/DOSE, 480 ML MM SCH ×2 (08:45→20:47)
--- NOTE | 2019-07-12 08:45 | NUR ---
CHG Pt provided CHG, shampoo of hair and new linen. Pt tolerated well, will continue to monitor.
[2019-07-12] MEDS: NAPH,MB-DB/K PH,MBDB 250 MG TAB GT SCH ×4 (08:47→20:43)
--- NOTE | 2019-07-12 09:15 | NUR ---
D/C Femoral Central Line D/c pts right femoral central line. No signs of active bleeding, pressure applied to site. Will continue to monitor.
[2019-07-12] MEDS ORDERED: EPOETIN ALFA 4,000 UNITS/ML VIAL SUBCUT ONE (10:15)
[2019-07-12] MEDS ORDERED: MAGNESIUM SULFATE 4 GM in D5W 250 ML IV ONE (10:15)
--- NOTE | 2019-07-12 10:16 | NUR ---
[employer] Note Phoned [facility] re BRAULIO. They have received the DNR POLST from patient's son and faxed it here. Brought BRAULIO to ICU. Dr Muñoz was there. DNR will be in effect.
--- NOTE | 2019-07-12 10:30 | NUR ---
Dr Beside Dr Muñoz and Dr Sal Bed side. Dr Sal DC GT Magnesium, ordered IVF.
--- NOTE | 2019-07-12 11:45 | NUR ---
Wound Care Pt provided wound care per wound care treatment instructions. Pt tolerated well. Will continue to monitor.
[2019-07-12] MEDS: SOD FERRIC GLUC COMPLEX/SUC 125 MG in NS 100 ML IV SCH (13:10)
--- NOTE | 2019-07-12 14:50 | NUR ---
Swallow Evaluation Sydnee, Speech Pathologist Bedside, Pt passed swallow evaluation, ordered soft mechanical diet. Addendum: 07/12/19 at 1633 by Piotr Briseno RN Incorrect PT.
--- NOTE | 2019-07-12 14:55 | NUR ---
Eric. SWALLOW EVAL SWALLOW EVAL COMPLETED. SISTER AT BEDSIDE. PT PRESENTS W/ ML ORAL DYSPHAGIA W/ PROLONGED MASTICATION. NO RESIDUE. NO S/S OF ASPIRATION. REC: [facility] SOFT CHOPPED DIET. THIN LIQUIDS OK. PT AND SISTER IN AGREEMENT W/ RESULTS AND REC. NURSE ANDREEA NOTIFIED. G8996 CI G8997 CI G8998 CI NOMS LEVEL 6 Addendum: 07/12/19 at 1710 by Sydnee ZHANG INCORRECT ENTRY.
[2019-07-12] MEDS: NACL 0.9% 1,000 ML IV SCH (15:38)
--- NOTE | 2019-07-12 15:45 | NUR ---
Endorsement Transfer - report given to MST RN
--- NOTE | 2019-07-12 15:47 | NUR ---
Transferred Transition of care to TELE room 111-A. Pt endorsed to nurse Ruby BAR. Pt connected to tele box monitoring system. No signs of injury or acute distress. Isolation precautions observed.
--- NOTE | 2019-07-12 15:48 | NUR ---
Nutrition F/U RD reviewed pt's current EMR record including diet Hx, physician notes, nursing notes, pertinent labs/meds/procedures, care trends, and care activity. Current Diet Order: Pivot 1.5 at 50 ml/hr, Brad BID, Brad BID Free Water Flush: 100 ml Q4h via GT Pertinent Medications zinc sulfate, VIT C, MOM, VIT D3, protonix IV, ferric sodium gluconate/NaCl IV, neutraphos, mag oxide Pertinent Labs Na 135 L, K 3.7 WNL (improved), BG 119 H, BUN 21 WNL (improved), ALB 1.1 L, WBC 7 WNL (improved) Skin Integrity Comment: Fortunato scale: 10; per [facility] note 07/09/19: 1. Right Lateral Hip over Greater Trochanter: Stage IV pressure ulcer, present on admission. 2. Left Lateral Hip over Greater Trochanter: Unstageable pressure ulcer, present on admission. 3. Right Upper Sacral area: Unstageable pressure ulcer, present on admission. 4. Sacral-Coccygeal area: Unstageable pressure ulcer, present on admission. 5. Sacral-Coccygeal area, Right Lateral and Inferior to site 4: Unstageable pressure ulcer, present on admission. 6. Left Lateral Malleolus: Blanchable erythema, present on admission. 7. Left First Metatarsal Head, Medial Aspect: Blanchable erythema, present on admission. 8. Right Lateral Malleolus: Blanchable erythema, present on admission. 9. Right First Metatarsal Head, Medial Aspect: Blanchable erythema, present on admission. Subjective Info: Nutrition Consult received for low albumin 07/12/19 1000. Pt seen +obtunded, trach to vent, w/ TF infusing as per physician order. Per RN, pt has been tolerating TF well, and received one Prosource and one Brad modular today, and received 100 ml of water flush at 0800 and 1200 today. Per nephrology notes, pt has nonoliguric ATN (recovering), and electrolyte imbalance. NEW Estimated Energy Expenditure (kcals/day) 1386 kcal/day (REE using PSU 2003b d/t critical illness) Estimated Protein Required (g/day) 65-86 gm/day (1.5-2 gm/kg CBW for sepsis, wound healing) Estimated Fluid Required (l/day) 1.3-1.5 L/day (30-35 ml/kg CBW for wound healing) Problem/Etiology/Signs/Symptoms (MODIFIED) Excessive enteral nutrition related to possible overfeeding as evidenced by current TF regimen exceeds 145% of estimated caloric needs. *ongoing, but likely warranted d/t hypermetabolic condition Expected Outcomes/Goals - Monitor tolerance to EN support w/ goal of pt meeting at least 100% of estimated nutritional needs, labs trending WNL, normal GI function, and skin integrity/wt maintenance Dietitian Recommendations * Recommend Pivot 1.5 at 50 ml/hr, Brad BID, Prosource daily, Free Water Flush: 100 ml Q4h via GT Provides: 2020 kcal/day, 133 gm protein/day, and 1423 ml free water/day Meets: 146% of estimated caloric needs and 155% of upper end of estimated protein needs Follow Up High Risk: F/U in 2-3 days
--- NOTE | 2019-07-12 15:58 | NUR ---
Dietitian Recommendations * Recommend Pivot 1.5 at 50 ml/hr, Brad BID, Prosource daily, Free Water Flush: 100 ml Q4h via GT Provides: 2020 kcal/day, 133 gm protein/day, and 1423 ml free water/day Meets: 146% of estimated caloric needs and 155% of upper end of estimated protein needs LP, RD Please refer to Nutrition F/U for details.
--- NOTE | 2019-07-12 16:05 | NUR ---
Note Received report from Piotr (RN Boris of [facility] DATA ANALYST) at this time. Pt has trach connected to mechanical ventilator at this time. Pt has GT feedings infusing at this time. DEANA PICC intact and patent at this time. Vanegas catheter intact and draining. Wound care was just done by DATA ANALYST and augieee. All dressings CDI at this time. Vital signs stable at this time. Pt has severe contractures in lower extremities at this time. 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
--- NOTE | 2019-07-12 17:45 | NUR ---
Note Pt received all medications (PO and IVPB) at this time. Hygiene care was given by CORK PRESSING MACHINE OPERATOR at this time for loose bowel movement. Resp therapist caring for pt's mechanical ventilator scheduled medications and trach hygiene all shift. Call light within reach.
--- NOTE | 2019-07-12 18:25 | NUR ---
Note Pt resting in bed - no needs noted at this time. Pt has tele unit attached and intact since admission to floor. DEANA PICC intact and patent infusing IVF's well. Vanegas catheter intact and draining. Mechanical ventilator intact at this time. GT feedings infusing well. Pt was checked on q1' and PRN since 1600. Call light within reach.
--- NOTE | 2019-07-12 20:00 | NUR ---
ASSUMED CARE. RECEIVED AWAKE.ALERT,NON-VERBAL. AFEBRILE, NOT IN ACUTE DISTRESS. NO PAIN OR DISCOMFORT NOTED. WITH IV FLUID NS INFUSING AT 30 ML/HR VIA LEFT UPPER ARM DOUBLE LUMEN PICC LINE. PIVOT 1.5 ANTONY RUNNING @ 50 ML/HR VA G-TUBE. HEAD OF BED ELEVATED AT LEAST 30 DEGREES AT ALL TIMES. LEARY CATHETER DRAINING YELLOW,CLOUDY URINE. SAO2=98% ON MECHANICAL VENTILATOR WITH FIO2=40% UT=904 AC=14 PEEP=5 VIA TRACHEOSTOMY TUBE. 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 SINUS RHYTHM @ 70'SMINUTE ON THE DIRECTOR FRAUD. VS STABLE, WILL CONTINUE TO MONITOR. NEEDS ATTENDED.
[2019-07-12] MEDS: cefTRIAXone 1 GM in D5W 50 ML IV SCH (20:13)
[2019-07-12] MEDS: FLUCONAZOLE 200 mg/ NS 100 ML IV SCH (20:44)
--- NOTE | 2019-07-12 20:48 | NUR ---
ALL DUE MEDICATIONS EXCEPT METOPROLOL GIVEN DUE TO YG=965/59.
[2019-07-13] VITALS: BP_SYST 128
--- NOTE | 2019-07-13 | NUR ---
ASLEEP, NOT IN ANY KIND OF DISTRESS. NO PAIN OR DISCOMFORT NOTED. SIDE RAILS UP, CALL LIGHT WITHIN REACH. DUE MEDICATION GIVEN. KEPT WARM AND COMFORTABLE. VS REMAIN STABLE.
[2019-07-13] MEDS: DILTIAZEM HCL 60 MG TABLET GT SCH ×4 (00:06→18:13)
--- NOTE | 2019-07-13 04:00 | NUR ---
ASLEEP, NO SIGNIFICANT CHANGE. REMAINS STABLE AND PAIN FREE.
--- NOTE | 2019-07-13 06:11 | NUR ---
AWAKE, NOT IN ACUTE DISTRESS. DUE MEDICATION GIVEN.
[2019-07-13 06:30] LABS: BASOPHILS % (AUTO) 0.1 % (0.0-2.0); EOSINOPHILS # (AUTO) 0.1 K/uL (0.0-0.4); EOSINOPHILS % (AUTO) 1.5 % (0.0-4.0); HEMATOCRIT 25.1 % (36-48); HEMOGLOBIN 8.4 g/dL (12.0-16.0); LYMPHOCYTES # (AUTO) 0.5 K/uL (1.0-5.5); LYMPHOCYTES % (AUTO) 7.8 % (20.5-51.5); MEAN CORPUSCULAR HEMOGLOBIN 28 pg (27-31); MEAN CORPUSCULAR HGB CONC 33 % (32-36); MEAN CORPUSCULAR VOLUME 85 fL (79.0-98.0); MONOCYTES # (AUTO) 0.2 K/uL (0.0-1.0); MONOCYTES % (AUTO) 3.3 % (1.7-9.3); NEUTROPHILS # (AUTO) 5.9 K/uL (1.8-7.7); NEUTROPHILS % (AUTO) 87.3 % (40.0-70.0); PLATELET COUNT (AUTO) 278 K/uL (130-430); RED BLOOD CELL COUNT(AUTO) 2.96 MIL/uL (4.2-6.2); RED CELL DISTRIBUTION WIDTH 15.6 % (9.0-15.0); WHITE BLOOD COUNT (AUTO) 6.8 K/uL (4.8-10.8)
[2019-07-13 06:47] LABS: CALCIUM 8.4 mg/dL (8.4-11.0); CREATININE 0.57 mg/dL (0.55-1.30); POTASSIUM 3.2 mmol/L (3.5-5.1)
--- NOTE | 2019-07-13 07:15 | NUR ---
ENDORSED CARE TO MARIBEL CORTES.
--- NOTE | 2019-07-13 07:45 | NUR ---
RN INITIAL NOTES RECEIVED PATIENT IN BED WITH TRACH FORTEX 7 CONNECTED TO MECHANICAL VENT , HOB ELEVATED NO FACIAL GRIMACE , WITH CLOSE EYES SELDOM OPENS EYES WHEN NAME IS CALLED , PATIENT RESPONDS TO TACTILE STIMULI, WITH 99% O2 SAT , GTUBE INTACT TO 50 CC/HR AND LEARY CATH INTCAT WITH YELLOW URINE OUTPUT , PATIENT WOUND DRESSING INTACT DRESSING DONE THIS 5 AM , PICC LINE TO DEANA X 2 LUMEN INFUSING IVF ORDERED , REPOSITIONED AND AND KEEP BACK DRY AND CLEAN, WILL CONT TO MONITOR SUCTIONING AND TREATMENT NEEDED
[2019-07-13 07:50] VITALS: BP_SYST 116
[2019-07-13 09:00] VITALS: BP_SYST 116
[2019-07-13] MEDS: BALSAM PERU/CASTOR OIL 60 GM OINT...G. TP SCH (09:00)
[2019-07-13] MEDS: HEPARIN SODIUM,PORCINE 5000 UNITS/ML VIAL SUBCUT SCH (09:33)
[2019-07-13] MEDS: PANTOPRAZOLE SODIUM 40 MG/VIAL (PROTONIX) IVP SCH ×2 (09:35→22:26)
[2019-07-13] MEDS: FERROUS SULFATE 300 MG/5 ML UDC GT SCH (09:36)
[2019-07-13] MEDS: levETIRAcetam 500 MG TABLET GT SCH ×2 (09:36→22:28)
[2019-07-13] MEDS: ASCORBIC ACID 500 MG TABLET GT SCH (09:36)
[2019-07-13] MEDS: SUCRALFATE 1 GM TABLET GT SCH ×4 (09:36→22:29)
[2019-07-13] MEDS: METOPROLOL TARTRATE 25 MG TABLET GT SCH ×2 (09:37→22:29)
[2019-07-13] MEDS: POTASSIUM CHLORIDE 20 MEQ/PKT PACKET GT SCH ×2 (09:38→09:51)
[2019-07-13] MEDS: CHOLECALCIFEROL (VITAMIN D3) 2,000 UNIT TABLET GT SCH (09:38)
[2019-07-13] MEDS: MAGNESIUM OXIDE 400 MG TABLET GT SCH ×2 (09:38→22:29)
[2019-07-13] MEDS: CHLORHEXIDINE GLUCONATE 15 ML/DOSE, 480 ML MM SCH ×2 (09:43→21:00)
[2019-07-13] MEDS: NAPH,MB-DB/K PH,MBDB 250 MG TAB GT SCH ×4 (09:48→22:27)
[2019-07-13] MEDS: MILK OF MAGNESIA 30 ML UDC GT SCH (09:49)
--- NOTE | 2019-07-13 10:00 | NUR ---
ROUNDS PATIENT COMFORTABLY SLEEPING AT THIS TIME CONT WITH SUCTIONING AND BREATHING PRN
--- NOTE | 2019-07-13 12:00 | NUR ---
ROUNDS PATIENT ROUNDS NAME CALLED SHE OPENS EYES AND CONT ON VENTILATOR NO DISTRESS
[2019-07-13 12:25] VITALS: BP_SYST 101
[2019-07-13] MEDS: SOD FERRIC GLUC COMPLEX/SUC 125 MG in NS 100 ML IV SCH (15:00)
[2019-07-13] MEDS ORDERED: EPOETIN ALFA 4,000 UNITS/ML VIAL SUBCUT ONE (15:00)
--- NOTE | 2019-07-13 15:00 | NUR ---
DR RIKI LYN CAME AND ORDERED TO DC LEARY CATH AND TO REINSERT PATIENT LEARY CATH AFTER 6 HOURS
[2019-07-13 16:47] VITALS: BP_SYST 101
[2019-07-13 17:18] VITALS: BP_SYST 136
--- NOTE | 2019-07-13 17:18 | NUR ---
ID , DR FALK WAS CALLED RE: POSITIVE SPUTUM CULTURE RESULT. SPOKE TO ЮЛИЯ.
--- NOTE | 2019-07-13 17:19 | NUR ---
CRITICAL SPUTUM RESULT PATIENT CRITICAL SPUTUM RESULT PAGED DR MICHELE AWAITING FOR THE RETURN CALL
[2019-07-13] MEDS: NACL 0.9% 1,000 ML IV SCH (18:15)
--- NOTE | 2019-07-13 18:35 | NUR ---
ENDORSEMENT WILL ENDORSE TO NEXT SHIFT CONT CARE WILL START WITH STACIE ALMODOVAR FOR THE ORDER OF DR MICHELE , WILL CONT WITH IVF ORDERED , LEARY CATH REMOVE AND TO REINSERT LEARY CATH THIS [address] LYN , WOUND DRESSING INTACT AND WILL FOLLOW UP , CONT WITH MECH VENT AND CHANGED FIO2-35% , TOLERATING AND NO SIGN OF DISTRESS Addendum: 07/13/19 at 1937 by Ernestine Brink RN ENDORSEMENT ADDITIONAL REJI NURSE ENDORSE TO DO WOUND DRESSING AND REINSERT LEARY CATH AT 10 PM
--- NOTE | 2019-07-13 20:00 | NUR ---
OPENS EYES SPON. TRACHE TO VENT. SUCTIONED WITH SMALL AMOUNT OF WHITE THIN MUCUS OBTAINED. ORAL CARE GIVEN. GT FEEDING WITH PIVOT 1.5 AT 50CC/HR. RESIDUAL CHECK 5CC. CONTRACTED. LEARY CATH PATENT DRAINING CLOUDY YUVAL URINE TO GRAVITY. CONTACT ISOLATION OBSERVED.
[2019-07-13] MEDS ORDERED: COLISTIMETHATE SODIUM 75 MG in NS 50 ML IV SCH (21:00)
[2019-07-13] MEDS ORDERED: COLISTIMETHATE SODIUM 150 MG VIAL INH SCH (21:00)
[2019-07-13] MEDS: cefTRIAXone 1 GM in D5W 50 ML IV SCH (21:53)
[2019-07-13] MEDS ORDERED: COLISTIMETHATE SODIUM IV SCH (22:00)
[2019-07-13] MEDS ORDERED: NS IV SCH (22:00)
--- NOTE | 2019-07-13 22:00 | NUR ---
HS CARE. TURNED. SUCTIONED WITH SAME RESULTS.
[2019-07-13] MEDS: FLUCONAZOLE 200 mg/ NS 100 ML IV SCH (22:25)
[2019-07-13] MEDS ORDERED: COLISTIMETHATE SODIUM 150 MG VIAL ONE (22:40)
[2019-07-14] VITALS (9 sets, daily range): BP systolic 116–143
--- NOTE | 2019-07-14 00:05 | NUR ---
ASSUMPTION OF CARE RECEIVED HANDOFF REPORT FROM CECILIA. WILL CONTINUE WITH PLAN OF CARE.
--- NOTE | 2019-07-14 00:10 | NUR ---
DIPIKA NOTES: PT TURNED AND REPOSITIONED ; PT WAS SLEEPING , EYES WERE CLOSED ; PT IS TOLERATING VENT SETTING WELL . Addendum: 07/15/19 at 0635 by Alvin Sibley RN CORRECTION : WRONG DATE
[2019-07-14] MEDS: DILTIAZEM HCL 60 MG TABLET GT SCH ×5 (01:28→23:09)
--- NOTE | 2019-07-14 02:30 | NUR ---
PATIENT RESTING COMFORTABLY IN BED, AAOX1. PROVIDED PATIENT WITH TRACHEAL SUCTION NEEDED. TOLERATED PROCEDURE.
--- NOTE | 2019-07-14 04:55 | NUR ---
NEW LEARY CATHETER #16F PLACED BY SARA. STERILE TECHNIQUE USED. PATIENT TOLERATED PROCEDURE WELL. URINE SPECIMEN SENT TO THE LAB.
[2019-07-14 06:03] LABS: BASOPHILS % (AUTO) 0.6 % (0.0-2.0); EOSINOPHILS # (AUTO) 0.3 K/uL (0.0-0.4); EOSINOPHILS % (AUTO) 3.9 % (0.0-4.0); HEMATOCRIT 26.2 % (36-48); HEMOGLOBIN 8.7 g/dL (12.0-16.0); LYMPHOCYTES # (AUTO) 0.7 K/uL (1.0-5.5); LYMPHOCYTES % (AUTO) 11.1 % (20.5-51.5); MEAN CORPUSCULAR HEMOGLOBIN 29 pg (27-31); MEAN CORPUSCULAR HGB CONC 33 % (32-36); MEAN CORPUSCULAR VOLUME 86 fL (79.0-98.0); MONOCYTES # (AUTO) 0.3 K/uL (0.0-1.0); MONOCYTES % (AUTO) 5.2 % (1.7-9.3); NEUTROPHILS # (AUTO) 5.3 K/uL (1.8-7.7); NEUTROPHILS % (AUTO) 79.2 % (40.0-70.0); PLATELET COUNT (AUTO) 319 K/uL (130-430); RED BLOOD CELL COUNT(AUTO) 3.04 MIL/uL (4.2-6.2); RED CELL DISTRIBUTION WIDTH 15.9 % (9.0-15.0); WHITE BLOOD COUNT (AUTO) 6.6 K/uL (4.8-10.8)
[2019-07-14 06:14] LABS: CREATININE 0.49 mg/dL (0.55-1.30); POTASSIUM 3.1 mmol/L (3.5-5.1)
--- NOTE | 2019-07-14 06:54 | NUR ---
Closing Notes Patient is resting comfortably in bed, eyes closed, visible chest rise and fall noted. No SOB, no acute distress, no signs of pain at this time. Tolerating trach to vent settings. GTUBE feeding infusing per MD order. PICC LINE site intact, dressing clean and dry, currently infusing ivf per MD order, see eMAR. Vanegas catheter draining to gravity, clear yellow urine, no independent looping noted. Bed is locked, in the lowest position, 2x side rails up. Call light within reach. Fall and safety precautions maintained. All needs have been met during this shift. Will endorse care to oncoming dayshift nurse.
--- NOTE | 2019-07-14 07:25 | NUR ---
RN INITIAL NOTES RECEIVED PATIENT IN BED OPENS EYES WHEN NAME IS CALLED WITH TRACT TIE CONNECTED TO VENT SATING 98% NO SIGN OF DISTRESS,NO FACIAL GRIMACE ,IVF INFUSING ORDERED TO DEANA VIA PICC LINE WITH 2 LUMEN GTUBE FEEDING TOLERATING INTACT , NO SIGN OF ASPIRATION , LEARY CATH INTACT DRAINING AND NO SIGN OF SEDIMENTS OR HEMATURIA, WILL CONT CARE AND MONITORING
[2019-07-14] MEDS ORDERED: COLISTIMETHATE SODIUM IV SCH (07:33)
[2019-07-14] MEDS ORDERED: NS IV SCH (07:33)
[2019-07-14] MEDS: BALSAM PERU/CASTOR OIL 60 GM OINT...G. TP SCH ×2 (09:00→12:08)
[2019-07-14] MEDS: MILK OF MAGNESIA 30 ML UDC GT SCH (09:00)
[2019-07-14] MEDS: FERROUS SULFATE 300 MG/5 ML UDC GT SCH (09:24)
[2019-07-14] MEDS: PANTOPRAZOLE SODIUM 40 MG/VIAL (PROTONIX) IVP SCH ×2 (09:25→22:00)
[2019-07-14] MEDS: POTASSIUM CHLORIDE 20 MEQ/PKT PACKET GT SCH ×2 (09:25→22:00)
[2019-07-14] MEDS: SUCRALFATE 1 GM TABLET GT SCH ×4 (09:25→22:01)
[2019-07-14] MEDS: ASCORBIC ACID 500 MG TABLET GT SCH (09:26)
[2019-07-14] MEDS: CHOLECALCIFEROL (VITAMIN D3) 2,000 UNIT TABLET GT SCH (09:26)
[2019-07-14] MEDS: levETIRAcetam 500 MG TABLET GT SCH ×2 (09:26→22:01)
[2019-07-14] MEDS: METOPROLOL TARTRATE 25 MG TABLET GT SCH ×2 (09:27→22:01)
[2019-07-14] MEDS: MAGNESIUM OXIDE 400 MG TABLET GT SCH ×2 (09:27→22:01)
[2019-07-14] MEDS: HEPARIN SODIUM,PORCINE 5000 UNITS/ML VIAL SUBCUT SCH (09:30)
--- NOTE | 2019-07-14 10:00 | NUR ---
ROUNDS PATIENT OPENS EYES SPONTANEOUSLY AND SUCTIONING DONE REPOSITIONED NO DISTRESS
--- NOTE | 2019-07-14 12:00 | NUR ---
ROUNDS CONT MEDICATION AND GTUBE FEEDING TOLERATING AND HEELZ UP IN THE PILLOW NO DISTRESS TRACT SUCTIONING, SAFETY REPOSITIONED DONE
[2019-07-14] MEDS: COLISTIMETHATE SODIUM IV SCH ×2 (12:01→22:27)
[2019-07-14] MEDS: NS IV SCH ×2 (12:01→22:27)
[2019-07-14] MEDS: NAPH,MB-DB/K PH,MBDB 250 MG TAB GT SCH ×4 (12:01→22:00)
[2019-07-14] MEDS: CHLORHEXIDINE GLUCONATE 15 ML/DOSE, 480 ML MM SCH ×2 (12:04→22:02)
--- NOTE | 2019-07-14 14:00 | NUR ---
DR LYN PATIENT SEEN BY DR LYN DISCUSSED PATIENT PLAN OF CARE PER DR LYN FOR DC PLANNING IN AM WOUND DRESSING DONE
--- NOTE | 2019-07-14 16:00 | NUR ---
ASLEEP PATIENT SLEEPING A THIS TIME NO SIGN OF DISTRESS , GTUBE FLUSHING DONE AND KEEP HOB ELEVATED , NO ASPIRATION NOTED
[2019-07-14] MEDS: SOD FERRIC GLUC COMPLEX/SUC 125 MG in NS 100 ML IV SCH (16:32)
[2019-07-14] MEDS: NACL 0.9% 1,000 ML IV SCH (16:38)
--- NOTE | 2019-07-14 18:54 | NUR ---
END RN NOTES WILL CONT CARE PATIENT KEEP ON MECH VENT SATING 99%, CONT WITH IVF ORDERED VIA PICCLINE INTACT, LEARY CATH INTACT DRAINING WELL WITH CLEAR YELLOW URINE OUTPUT AND GTUBE TOLERATING WITH 10 CC RESIDUAL, PATIENT HEELZ UP IN PILLOWS AND PLACED PILLOWS IN BETWEEN CONTRACTED LEGS, PATIENT WILL HAVE POTASSIUM SUPPLEMENT TONIGHT PER DR LYN,NO [id number] THE WHOLE SHIFT, WILL CONT PLAN OF CARE , CONT WITH IV ATB AND WOUND CARE ,
--- NOTE | 2019-07-14 20:00 | NUR ---
INITIAL NOTES; PT AWAKE,NON-VERBAL. AFEBRILE, NOT IN ACUTE DISTRESS. NO FACIAL GRIMACE FOR PAIN OR DISCOMFORT NOTED. WITH IV FLUID NS INFUSING AT 30 ML/HR VIA LEFT UPPER ARM DOUBLE LUMEN MIDLINE LINE( PER PICC LINE FUR EXAMINER ITS MIDLINE).ARM CIR IS 24 CM , NO EXTERNAL LENGTH NOTED , PIVOT 1.5 ANTONY RUNNING @ 50 ML/HR VA G-TUBE.RESIDUAL 5 ML , ABLE TO FLUSH WELL , HEAD OF BED ELEVATED TO 30 DEGREES AT ALL TIMES. LEARY CATHETER DRAINING YELLOW,SEDIMENTED URINE. ON MECHANICAL VENTILATOR WITH FIO2=35% QK=838 AC=14 PEEP=5 VIA TRACHEOSTOMY TUBE. 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 SINUS RHYTHM ON THE THREAD REELER. VS STABLE, WILL CONTINUE TO MONITOR. PT TURNED AND REPOSITIONED ; BED IN LOW AND LOCK POSITION , CALL SHEPARD IN REACH . WILL CONTINUE TO MONITOR PT .
[2019-07-14] MEDS: cefTRIAXone 1 GM in D5W 50 ML IV SCH (21:55)
--- NOTE | 2019-07-14 22:10 | NUR ---
MEDICATION:. DUE MEDS CRUSHED AND GIVEN VIA G TUBE , G T FLUSHED WELL . TUBE FEEDING RESTARTED .
--- NOTE | 2019-07-14 22:15 | NUR ---
SPONGE BATH AND WEI CARE/ MOUTH CARE : SPONGE BATH AND WEI CARE GIVEN WITH SOAP AND WARM WATER , LINEN AND GOWN CHANGED ; PT WAS INCONTINENT WITH LOOSE YELLOW BM ; LEARY CATH CARE PROVIDED ; PT TURNED AND REPOSITIONED ; G T FEEDING RESTARTED . PT TOLERATED WELL Addendum: 07/15/19 at 0617 by Alvin Sibley RN MOUH CARE PROVIDED CLEANED MOUTH WITH PERIDEX ORAL SOLUTION AND ORAL AND TRACH SUCTION PROVIDED
[2019-07-14] MEDS: FLUCONAZOLE 200 mg/ NS 100 ML IV SCH (22:50)
[2019-07-15] VITALS: BP_SYST 136
--- NOTE | 2019-07-15 00:10 | NUR ---
RN NOTES: PT TURNED AND REPOSITIONED ; PT WAS SLEEPING , EYES WERE CLOSED ; PT IS TOLERATING VENT SETTING WELL .
--- NOTE | 2019-07-15 02:10 | NUR ---
RN NOTES: PT IS AWAKE , NOT IN ANY ACUTE DISTRESS; ORAL SUCTION AND TRACH SUCTION PROVIDED ; WILL CONTINUE TO MONITOR PT .
--- NOTE | 2019-07-15 04:10 | NUR ---
RN NOTES: PT IS COMFORTABLE ; NOT IN ANY ACUTE DISTRESS ; TOLERATING VENT SETTING WELL ; G TUBE FLUSHED WELL ; WILL CONTINUE TO MONITOR PT .
--- NOTE | 2019-07-15 05:40 | NUR ---
SPONGE BATH/ PEICARE/ MOUTH CARE: MOUTH CARE PROVIDED , PT ORALLY AND TACH SUCTION PROVIDED , NOTICED THICK WHITE SECRETION ; PT IS INCONTINENT WITH LOOSE BM , PT CLEANED WITH SOAP AND WARM WATER , WEI CARE PROVIDED ; APPLIED Z SACHI; OUTER DRESSING TO SACRAL AREA IS DIRTY ; NEW SACRAL DRESSING APPLIED AFTER CLEANING ; LEARY CARE PROVIDED . LINEN AND KATIE CHANGED . G T FEEDING RESTARTED AFTER CLEANING PT . HOB IS ELEVATED
[2019-07-15] MEDS: LOPERAMIDE HCL 2 MG CAPSULE PO PRN (05:59)
[2019-07-15] MEDS: DILTIAZEM HCL 60 MG TABLET GT SCH ×4 (05:59→23:59)
--- NOTE | 2019-07-15 06:05 | NUR ---
G T FEEDING CHANGE/ DRESSING CHANGE: G T SITE DRESSING REMOVED NOTICED DENUDED RED PERISTOMA SITE / CLEANED ; APPLIED NEW DRESSING ; G T FEEDING CHANGED AND STARTED NEW BAG OF PIVOT 1.5 WITH NEW TUBING AT 50 CC/HR . PT IS COMFORTABLE . DUE MED GIVEN VIA G TUBE PER ORDER ; WILL CONTINUE TO MONITOR PT .
--- NOTE | 2019-07-15 06:50 | NUR ---
CLOSING NOTES : PT IS COMFORTABLE ; PT TOLERATED VENT SETTING WELL ; G TUBE FEEDING AND IV FLUID IS INFUSING WELL ; NO S/S OF ANY INFILTRATION NOTED ; VITALS ARE STABLE ; CONTACT ISOLATION MAINTAINED PT HAD 2 LOOSE BM LAST NIGHT , WILL NOTIFY RN ; MEDICATED PT EARLIER WITH IMODIUM . ALL NEEDS MET ; HOB WAS ELEVATED ALL TIMES ; PT TURNED AND REPOSITIONED Q2 HRS ; LEARY DRAINING YELLOW URINE WITH SEDIMENTS TO GRAVITY . TELE MONITOR IS RUNNING SR ; WILL CONTINUE TO MONITOR PT AND WILL ENDORSE TO NEXT SHIFT NURSE .
[2019-07-15 08:00] VITALS: BP_SYST 123
--- NOTE | 2019-07-15 08:00 | NUR ---
INITIAL NOTE: RECEIVED PT FROM WIRING MECHANIC NURSE. PT IS LAYING IN BED COMFORTABLY. PT ON VENT, TOLERATING WELL, NO DISTRESS NOTED. NO SIGNS OF PAIN VIA ROSSI MIRELES SCALE. PT REPOSITIONED, ORAL CARE PROVIDED. SAFETY AND CONTACT PRECAUTIONS IN PLACE: BED LOCKED IN LOWEST POSITION, ALARM ON. WILL CONTINUE PLAN OF CARE
[2019-07-15] MEDS ORDERED: POTASSIUM CHLORIDE 20 MEQ/PKT PACKET GT SCH (09:00)
[2019-07-15] MEDS: MILK OF MAGNESIA 30 ML UDC GT SCH (09:12)
[2019-07-15] MEDS: POTASSIUM CHLORIDE 20 MEQ/PKT PACKET GT SCH ×2 (09:12→22:31)
[2019-07-15] MEDS: FERROUS SULFATE 300 MG/5 ML UDC GT SCH (09:12)
[2019-07-15] MEDS: MAGNESIUM OXIDE 400 MG TABLET GT SCH ×2 (09:13→22:31)
[2019-07-15] MEDS: PANTOPRAZOLE SODIUM 40 MG/VIAL (PROTONIX) IVP SCH ×2 (09:13→22:31)
[2019-07-15] MEDS: ASCORBIC ACID 500 MG TABLET GT SCH (09:13)
[2019-07-15] MEDS: SUCRALFATE 1 GM TABLET GT SCH ×4 (09:13→22:32)
[2019-07-15] MEDS: CHOLECALCIFEROL (VITAMIN D3) 2,000 UNIT TABLET GT SCH (09:13)
[2019-07-15] MEDS: NAPH,MB-DB/K PH,MBDB 250 MG TAB GT SCH ×4 (09:14→22:31)
[2019-07-15] MEDS: levETIRAcetam 500 MG TABLET GT SCH ×2 (09:14→22:31)
[2019-07-15] MEDS: METOPROLOL TARTRATE 25 MG TABLET GT SCH ×2 (09:14→22:32)
[2019-07-15] MEDS: HEPARIN SODIUM,PORCINE 5000 UNITS/ML VIAL SUBCUT SCH (09:15)
[2019-07-15] MEDS: CHLORHEXIDINE GLUCONATE 15 ML/DOSE, 480 ML MM SCH ×2 (09:17→22:32)
[2019-07-15] MEDS: NS IV SCH ×2 (10:28→22:30)
[2019-07-15] MEDS: COLISTIMETHATE SODIUM IV SCH ×2 (10:28→22:30)
--- NOTE | 2019-07-15 10:35 | NUR ---
Discharge Planning: DCP faxed pt referral to [facility] (f [phone] p [phone]) DCP to follow up. Addendum: 07/15/19 at 1145 by Miguelina Joyner DP DCP spoke to Mickey was there on speaker phone at [facility] (f [phone] p [phone]) accepting pt back to Rm 29[facility], DCP made Enmanuel aware patient is ISO MDRO/ESBL sputum. DCP made pt nurse aware. Addendum: 07/15/19 at 1602 by Miguelina Joyner DP [facility] (f [phone] p [phone]) Rm 29A, [facility] ([phone]) 8:45pm P/U. DCP took patient packet to nurse station made nurse aware.
--- NOTE | 2019-07-15 11:24 | NUR ---
PT IS RESTING COMFORTABLY IN BED. PT REPOSITIONED IN BED. RISE AND FALL OF CHEST NOTED, NOT DISTRESS NOTED.
[2019-07-15 12:00] VITALS: BP_SYST 129
[2019-07-15 14:35] LABS: BASOPHILS % (AUTO) 0.6 % (0.0-2.0); EOSINOPHILS # (AUTO) 0.3 K/uL (0.0-0.4); EOSINOPHILS % (AUTO) 3.9 % (0.0-4.0); HEMATOCRIT 27.8 % (36-48); HEMOGLOBIN 9.1 g/dL (12.0-16.0); LYMPHOCYTES # (AUTO) 0.9 K/uL (1.0-5.5); LYMPHOCYTES % (AUTO) 13.3 % (20.5-51.5); MEAN CORPUSCULAR HEMOGLOBIN 29 pg (27-31); MEAN CORPUSCULAR HGB CONC 33 % (32-36); MEAN CORPUSCULAR VOLUME 87 fL (79.0-98.0); MONOCYTES # (AUTO) 0.4 K/uL (0.0-1.0); MONOCYTES % (AUTO) 6.2 % (1.7-9.3); NEUTROPHILS # (AUTO) 5.4 K/uL (1.8-7.7); PLATELET COUNT (AUTO) 353 K/uL (130-430); RED BLOOD CELL COUNT(AUTO) 3.21 MIL/uL (4.2-6.2); RED CELL DISTRIBUTION WIDTH 15.9 % (9.0-15.0); WHITE BLOOD COUNT (AUTO) 7.1 K/uL (4.8-10.8)
--- NOTE | 2019-07-15 14:37 | NUR ---
Nutrition F/U RD reviewed pt's current EMR record including diet Hx, physician notes, nursing notes, pertinent labs/meds/procedures, care trends, and care activity. PMH: chronic respiratory failure, vent-dependent, tracheostomy, CVAs, recurrent pneumonia per physician notes Pt also found w/ septic shock, severe protein malnutrition, decubitus ulcer per physician notes Current Diet Order: Pivot 1.5 at 50 ml/hr, Brad BID, Prosource daily, Free Water Flush: 100 ml Q4h via GT x3 days Pertinent Medications zinc sulfate, VIT C, MOM, VIT D3, protonix IV, ferric sodium gluconate/NaCl IV, neutraphos, mag oxide Pertinent Labs Na 138 (WNL), K 3.1L (decreased), BG 126 H (increased), BUN 24 H (increased), ALB 1.1 L (same), NEW: CRE 0.49 L, H/H 8.7/26.2 L Skin Integrity Comment: Fortunato scale: 10; per Pumper Gager note 07/09/19: 1. Right Lateral Hip over Greater Trochanter: Stage IV pressure ulcer, present on admission. 2. Left Lateral Hip over Greater Trochanter: Unstageable pressure ulcer, present on admission. 3. Right Upper Sacral area: Unstageable pressure ulcer, present on admission. 4. Sacral-Coccygeal area: Unstageable pressure ulcer, present on admission. 5. Sacral-Coccygeal area, Right Lateral and Inferior to site 4: Unstageable pressure ulcer, present on admission. 6. Left Lateral Malleolus: Blanchable erythema, present on admission. 7. Left First Metatarsal Head, Medial Aspect: Blanchable erythema, present on admission. 8. Right Lateral Malleolus: Blanchable erythema, present on admission. 9. Right First Metatarsal Head, Medial Aspect: Blanchable erythema, present on admission. Subjective Info: Pt seen +obtunded, trach to vent, w/ TF infusing Pivot 1.5 @ 50 ml/hr 149 ml delivered. Per RN, pt has been tolerating TF well with 0 residual. Pt bed scale wt of 101.7 lb- may be inaccurate d/t linens. Per EMR, 5 ml residual noted 07/14. RN reported plans to d/c pt to SNF. On 07/14, pt was found with malnutrition, anemia, and persistent vegetative state, stable on vent support per EMR. Pt is also on HD and had a new sullivan catheter placement on 07/14 per EMR. Current EN regimen is excessive and provides 198% of the new estimated calorie needs and needs to be adjusted. A decrease in EN infusion rate is warranted. NEW Estimated Energy Expenditure (kcals/day) 1018 kcal/day (REE using PSU 2003b d/t critical illness) Updated Estimated Protein Required (g/day) 65-86 gm/day (1.5-2 gm/kg CBW for sepsis, wound healing) Estimated Fluid Required (l/day) 1.3-1.5 L/day (30-35 ml/kg CBW for wound healing) NEW Problem/Etiology/Signs/Symptoms Increased nutritional needs related to metabolic condition as evidenced by HD, sepsis, and vent support. *new Excessive enteral nutrition related to possible overfeeding as evidenced by current TF regimen exceeds 145% of estimated caloric needs. *ongoing, but likely warranted d/t hypermetabolic condition Expected Outcomes/Goals - Monitor tolerance to EN support w/ goal of pt meeting at least 100% of estimated nutritional needs, labs trending WNL, normal GI function, and skin integrity/wt maintenance Dietitian Recommendations * Recommend Pivot 1.5 at 40 ml/hr, Brad BID, Prosource daily, Free Water Flush: 100 ml Q4h via GT Provides: 1660 kcal/day, 105 gm protein/day, and 1359 ml free water/day Meets: 163% of estimated caloric needs and 122% of upper end of estimated protein needs Follow Up High Risk: F/U in 2-3 days
[2019-07-15 14:39] LABS: CALCIUM 8.3 mg/dL (8.4-11.0); CREATININE 0.62 mg/dL (0.55-1.30); POTASSIUM 3.8 mmol/L (3.5-5.1)
--- NOTE | 2019-07-15 14:43 | NUR ---
Dietitian Recommendations * Recommend Pivot 1.5 at 50 ml/hr, Brad BID, Prosource daily, Free Water Flush: 100 ml Q4h via GT Provides: 2020 kcal/day, 133 gm protein/day, and 1423 ml free water/day Meets: 146% of estimated caloric needs and 155% of upper end of estimated protein needs Please see Nutrition F/U note for details. JUDE BRYANT Addendum: 07/15/19 at [address] Wrong recommendation. Please disregard.
[2019-07-15] MEDS: SOD FERRIC GLUC COMPLEX/SUC 125 MG in NS 100 ML IV SCH (14:48)
--- NOTE | 2019-07-15 14:57 | NUR ---
Dietitian Recommendations * Recommend Pivot 1.5 at 40 ml/hr, Brad BID, Prosource daily, Free Water Flush: 100 ml Q4h via GT Provides: 1660 kcal/day, 105 gm protein/day, and 1359 ml free water/day Meets: 163% of estimated caloric needs and 122% of upper end of estimated protein needs Please see Nutrition F/U note for details ASSISTED, RD
[2019-07-15] MEDS: NACL 0.9% 1,000 ML IV SCH (15:00)
--- NOTE | 2019-07-15 15:57 | NUR ---
wound care dressing and picture done. repositioned for comfort. no acute distress noted.
[2019-07-15 16:00] VITALS: BP_SYST 133
--- NOTE | 2019-07-15 16:38 | NUR ---
PT IS RESTING IN BED COMFORTABLY. WOUND CARE PERFORMED, PICTURES TAKEN. PT REPOSITIONED. RISE AND FALL OF CHEST PRESENT. NO DISTRESS NOTED. WILL CONTINUE TO MONITOR PT.
[2019-07-15 17:41] VITALS: BP_SYST 133
--- NOTE | 2019-07-15 18:27 | NUR ---
END OF SHIFT NOTE: PT REMAINED STABLE DURING SHIFT WITH NO MAJOR CHANGE IN CONDITION. NO SIGNS OF PAIN. TRACH IN PLACE, RISE AND FALL OF CHEST NOTED, NO RESPIRATORY DISTRESS. WOUND CARE PERFORMED. MOUTH CARE PROVIDED. PT TURNED AND REPOSITIONED Q2HR. ALL MEDICATIONS ADMINISTERED WITHOUT COMPLICATIONS. PT TO BE DC BACK TO [facility] AT 2044. SAFETY PRECAUTIONS IN PLACE: BED LOCKED IN LOWEST POSITION, ALARM ON, CALL LIGHT WITHIN REACH. WILL ENDORSE CARE TO AGRICULTURAL PRODUCE SORTER NURSE.
--- NOTE | 2019-07-15 19:30 | NUR ---
PM ASSESSMENT REPORT RECEIVED FROM AM RN. PT RECEIVED IN BED WITH EYES OPEN, RESPONDING TO TACTILE STIMULATION. VSS, NO S/S OF ACUTE DISTRESS NOTED. PT TRACH TO VENT, SETTINGS: AC 14, TV 350, FIO2 35%, PEEP 5. DEANA MIDLINE IN PLACE INFUSING NS @ 30 CC/HR. G TUBE IN PLACE RUNNING PIVOT @ 50 CC/HR. LEARY CATH IN PLACE DRAINING YELLOW URINE TO GRAVITY. HOB ELEVATED, BED IN LOWEST POSITION, CALL LIGHT IN REACH. WILL CONTINUE TO MONITOR PT.
[2019-07-15 20:00] VITALS: BP_SYST 110
[2019-07-15] MEDS: cefTRIAXone 1 GM in D5W 50 ML IV SCH (20:33)
--- NOTE | 2019-07-15 21:10 | NUR ---
[facility] WITHOUT [facility]. PER EMT ETA FOR [facility] [phone]. WILL MAKE MIRELLA CALLEJAS AWARE AND CONTINUE TO MONITOR PT.
--- NOTE | 2019-07-15 21:25 | NUR ---
REPORT REPORT GIVEN TO [facility] AT [facility] AT THIS TIME. RN MADE AWARE THAT PT TRANSPORT IS RUNNING LATE. WILL CONTINUE TO MONITOR PT.
[2019-07-15] MEDS: FLUCONAZOLE 200 mg/ NS 100 ML IV SCH (22:30)
--- NOTE | 2019-07-16 01:35 | NUR ---
[facility] TO TRANSPORT PT. GT FEEDING AND IV MEDICATIONS DISCONTINUED AT THIS TIME. PT IN STABLE CONDITION.
== END 2019-07-16 01:48 | DRG 720 ==
LOC: SED 02:17 → SIC 05:46 → STU 07-12 15:51
PROVIDERS: ADMIT Internal Medicine Nephrology; ATTEND Internal Medicine Nephrology
PROC: 5A1955Z Respiratory Ventilation, Greater than 96 Consecutive Hours (ICD-10-PCS; principal; 2019-07-09)
PROC: 30233N1 Transfusion of Nonautologous Red Blood Cells into Peripheral Vein, Percutaneous Approach (ICD-10-PCS; 2019-07-10)
DX: A41.9 Sepsis, unspecified organism (principal); J96.20 Acute and chronic respiratory failure, unspecified whether with hypoxia or hypercapnia; E43 Unspecified severe protein-calorie malnutrition; Z99.11 Dependence on respirator [ventilator] status; J15.1 Pneumonia due to Pseudomonas; J15.5 Pneumonia due to Escherichia coli; N17.0 Acute kidney failure with tubular necrosis; R40.20 Unspecified coma; G82.50 Quadriplegia, unspecified; Z93.0 Tracheostomy status; R65.21 Severe sepsis with septic shock; G93.1 Anoxic brain damage, not elsewhere classified; I48.0 Paroxysmal atrial fibrillation; R40.3 Persistent vegetative state; R13.10 Dysphagia, unspecified; E87.1 Hypo-osmolality and hyponatremia; N18.9 Chronic kidney disease, unspecified; E78.5 Hyperlipidemia, unspecified; I12.9 Hypertensive chronic kidney disease with stage 1 through stage 4 chronic kidney disease, or unspecified chronic kidney disease; L89.90 Pressure ulcer of unspecified site, unspecified stage; I25.10 Atherosclerotic heart disease of native coronary artery without angina pectoris; D63.8 Anemia in other chronic diseases classified elsewhere; E83.42 Hypomagnesemia; E87.6 Hypokalemia; G40.909 Epilepsy, unspecified, not intractable, without status epilepticus; Y95 Nosocomial condition; Z86.73 Personal history of transient ischemic attack (TIA), and cerebral infarction without residual deficits; Z93.1 Gastrostomy status; Z98.2 Presence of cerebrospinal fluid drainage device; Z79.899 Other long term (current) drug therapy; Z68.1 Body mass index [BMI] 19.9 or less, adult
CPT/HCPCS: 36415; 36600; 71045; 80048; 80053; 80076; 82140-TC; 82272; 82803-TC; 83540-TC; 83550-TC; 83605; 83735-TC; 84100-TC; 84132-TC; 84484; 85007; 85025; 85027; 85610-TC; 85730-TC; 86886; 86900; 86901; 86920; 87040-TC; 87070-TC; 87081; 87086; 87186-TC; 87205-TC; 93005; 94002; 94003; 94640; 94760; 96365; 96367; 99291; C1751; C9113; J0696; J0770; J0885; J1160; J1450; J1644; J1956; J2543; J2916; J3370; J3475; J3480; J7030; J7050; J7060; J7120; J7620; P9021; P9046

== ENCOUNTER 2020-06-08 22:48 | Inpatient (IN) | payer OTHER, MEDICARE ==
[~2020-06-08] VITALS: Ht 160 cm; Wt 65.5 kg
[~2020-06-08 22:48] MED LIST changes: +ACET325T53 GT; -AMLO5TAB4 PEG; -ASA81 PEG; +ASCO500S10 GT; +CAT.1 GT; +DOCU-144 GT; +ESOM40CA53 GT; +FER300L GT; +IPRA3AMP9 INH; +LEVE250T2 GT; -LEVE250T2 PEG; -LIP10 PEG; +MOM GT; +MULT-1089 GT; +POTA20TA83 GT; +SUCR1TAB78 GT; -TOPI100T39 PEG; +VITD2000 GT; +ZINC220T4 GT; -[UNRECOGNIZED DRUG - CODE] MC
[2020-06-08 22:55] VITALS: BP_SYST 108
[2020-06-08] MEDS ORDERED: GASTROGRAFIN 120 ML ONE (23:24)
[2020-06-08 23:26] LABS: BASOPHILS % (AUTO) 0.2 % (0.0-2.0); EOSINOPHILS % (AUTO) 0.3 % (0.0-4.0); HEMATOCRIT 38.2 % (36-48); HEMOGLOBIN 12.7 g/dL (12.0-16.0); LYMPHOCYTES % (AUTO) 5.3 % (20.5-51.5); MEAN CORPUSCULAR HEMOGLOBIN 29 pg (27-31); MEAN CORPUSCULAR HGB CONC 33 % (32-36); MEAN CORPUSCULAR VOLUME 86 fL (79.0-98.0); MONOCYTES # (AUTO) 0.3 K/uL (0.0-1.0); MONOCYTES % (AUTO) 1.5 % (1.7-9.3); NEUTROPHILS # (AUTO) 16.7 K/uL (1.8-7.7); NEUTROPHILS % (AUTO) 92.7 % (40.0-70.0); PLATELET COUNT (AUTO) 336 K/uL (130-430); RED BLOOD CELL COUNT(AUTO) 4.45 MIL/uL (4.2-6.2); RED CELL DISTRIBUTION WIDTH 16.4 % (9.0-15.0)
[2020-06-08 23:39] LABS: CALCIUM 9.5 mg/dL (8.4-11.0); CREATININE 0.8 mg/dL (0.55-1.30); POTASSIUM 3.8 mmol/L (3.5-5.1)
[2020-06-08 23:46] LABS: ALBUMIN 2.6 g/dL (3.4-4.8); TOTAL BILIRUBIN 0.5 mg/dL (0.0-1.0)
[2020-06-09] MEDS ORDERED: NS 500 ML IV ONE (00:30)
[2020-06-09 01:09] LABS: BILIRUBIN,URINE NEGATIVE (NEGATIVE); BLOOD, URINE 3+ (NEGATIVE); CLARITY/URINE TURBID (CLEAR); COLOR,URINE YELLOW (YELLOW); GLUCOSE,URINE NEGATIVE (NEGATIVE); KETONES,URINE NEGATIVE (NEGATIVE); LEUKOCYTE ESTERASE ,URINE 2+ (NEGATIVE); NITRITE, URINE POSITIVE (NEGATIVE); PROTEIN URINE 2+ (NEGATIVE); UROBILINOGEN,URINE 0.2 (0.2-1.0)
[2020-06-09] MEDS ORDERED: cefTRIAXone 1 GM IVPB PREMIX 50 ML IV ONE (01:15)
[2020-06-09 01:19] LABS: BACTERIA,URINE MANY /HPF (None Seen); RBC,URINE 50-80 /HPF (0-3); WBC,URINE 50-80 /HPF (0-3)
[2020-06-09] MEDS ORDERED: VANCOMYCIN HCL 1,000 MG in NS 250 ML IV ONE (01:30)
[2020-06-09] MEDS ORDERED: NACL 0.9% 1,000 ML IV ONE (01:30)
[2020-06-09] MEDS ORDERED: D5LR 1,000 ML IV ONE (01:30)
[2020-06-09] MEDS ORDERED: PIPERACILLIN/TAZO 3.375 GM in NS 50 ML IV ONE (01:30)
[2020-06-09] MEDS ORDERED: PIPERACILLIN/TAZOBACTAM 3.375 GM/VIAL (ZOSYN) IV ONE ×2 (02:10→04:40)
[2020-06-09] MEDS ORDERED: VANCOMYCIN HCL 1000 MG/VIAL IV ONE (02:10)
[2020-06-09 03:23] VITALS: BP_SYST 116
[2020-06-09 05:23] VITALS: BP_SYST 116
[2020-06-09] MEDS: PIPERACILLIN/TAZO 3.375 GM in NS 50 ML IV SCH ×4 (06:23→23:14)
[2020-06-09 08:00] VITALS: BP_SYST 100
[2020-06-09] MEDS ORDERED: GASTROGRAFIN 120 ML ONE (09:57)
[2020-06-09] MEDS ORDERED: MILK OF MAGNESIA 30 ML UDC GT ONE (12:30)
[2020-06-09] MEDS ORDERED: MULTIVITAMINS TAB 1 TABLET GT ONE (12:30)
[2020-06-09] MEDS ORDERED: levETIRAcetam 500 MG TABLET GT SCH (12:30)
[2020-06-09] MEDS ORDERED: FERROUS SULFATE 300 MG/5 ML UDC GT ONE (12:30)
[2020-06-09] MEDS ORDERED: IPRATROPIUM/ALBUTEROL SULFATE 3 ML AMPUL.NEB (DUONEB) INH PRN (12:30)
[2020-06-09] MEDS ORDERED: cloNIDine HCL 0.1 MG TABLET GT PRN (12:30)
[2020-06-09] MEDS ORDERED: ASCORBIC ACID 500 MG TABLET GT ONE (12:30)
[2020-06-09] MEDS ORDERED: CHOLECALCIFEROL (VITAMIN D3) 2,000 UNIT TABLET GT ONE (12:30)
[2020-06-09] MEDS ORDERED: ACETAMINOPHEN 650 MG/20.3 ML UDC GT PRN (12:30)
[2020-06-09] MEDS ORDERED: METOPROLOL TARTRATE 50 MG TABLET GT ONE (12:45)
[2020-06-09] MEDS ORDERED: POTASSIUM CHLORIDE 20 MEQ/PKT PACKET GT ONE (12:45)
[2020-06-09] MEDS ORDERED: LANSOPRAZOLE 30 MG CAPSULE.DR GT ONE (12:45)
[2020-06-09 12:59] VITALS: BP_SYST 91
[2020-06-09] MEDS ORDERED: LevETIRAcetam 500 MG/5 ML UDC ORAL LIQUID GT ONE (13:00)
[2020-06-09] MEDS ORDERED: CHLORHEXIDINE GLUCONATE 15 ML/DOSE, 480 ML MM ONE (13:00)
[2020-06-09] MEDS ORDERED: FLUCONAZOLE 200 MG TABLET (DIFLUCAN) GT ONE (13:30)
[2020-06-09] MEDS: SUCRALFATE 1 GM TABLET GT SCH ×3 (13:41→21:27)
[2020-06-09] MEDS ORDERED: predniSONE 20 MG TABLET GT ONE (14:00)
[2020-06-09] MEDS ORDERED: BALSAM PERU/CASTOR OIL 60 GM OINT...G. TP ONE (15:00)
[2020-06-09 15:16] LABS: BASOPHILS # (AUTO) 0.1 K/uL (0.0-0.2); BASOPHILS % (AUTO) 0.4 % (0.0-2.0); EOSINOPHILS # (AUTO) 0.2 K/uL (0.0-0.4); EOSINOPHILS % (AUTO) 0.8 % (0.0-4.0); HEMATOCRIT 34.7 % (36-48); HEMOGLOBIN 11.1 g/dL (12.0-16.0); LYMPHOCYTES # (AUTO) 1.2 K/uL (1.0-5.5); LYMPHOCYTES % (AUTO) 6.4 % (20.5-51.5); MEAN CORPUSCULAR HEMOGLOBIN 28 pg (27-31); MEAN CORPUSCULAR HGB CONC 32 % (32-36); MEAN CORPUSCULAR VOLUME 88 fL (79.0-98.0); MONOCYTES # (AUTO) 0.5 K/uL (0.0-1.0); MONOCYTES % (AUTO) 2.5 % (1.7-9.3); NEUTROPHILS # (AUTO) 16.8 K/uL (1.8-7.7); NEUTROPHILS % (AUTO) 89.9 % (40.0-70.0); PLATELET COUNT (AUTO) 254 K/uL (130-430); RED BLOOD CELL COUNT(AUTO) 3.97 MIL/uL (4.2-6.2); RED CELL DISTRIBUTION WIDTH 16.2 % (9.0-15.0); WHITE BLOOD COUNT (AUTO) 18.7 K/uL (4.8-10.8)
[2020-06-09 16:04] LABS: CALCIUM 8.8 mg/dL (8.4-11.0); CREATININE 0.89 mg/dL (0.55-1.30); POTASSIUM 3.3 mmol/L (3.5-5.1)
[2020-06-09] MEDS: LR 1,000 ML IV SCH (16:14)
[2020-06-09 16:27] VITALS: BP_SYST 97
[2020-06-09 20:00] VITALS: BP_SYST 98
[2020-06-09] MEDS: METOPROLOL TARTRATE 50 MG TABLET GT SCH (21:00)
[2020-06-09] MEDS: CHLORHEXIDINE GLUCONATE 15 ML/DOSE, 480 ML MM SCH (21:26)
[2020-06-09] MEDS: LevETIRAcetam 500 MG/5 ML UDC ORAL LIQUID GT SCH (21:27)
[2020-06-09] MEDS: LINEZOLID 300 ML IV SCH (21:27)
[2020-06-10 01:07] VITALS: BP_SYST 106
[2020-06-10] MEDS: LR 1,000 ML IV SCH ×2 (04:18→09:28)
[2020-06-10] MEDS: LANSOPRAZOLE 30 MG CAPSULE.DR GT SCH (06:06)
[2020-06-10] MEDS: PIPERACILLIN/TAZO 3.375 GM in NS 50 ML IV SCH ×4 (06:06→23:41)
[2020-06-10 07:03] LABS: BASOPHILS % (AUTO) 0.1 % (0.0-2.0); EOSINOPHILS % (AUTO) 0.1 % (0.0-4.0); HEMATOCRIT 29.7 % (36-48); HEMOGLOBIN 9.9 g/dL (12.0-16.0); LYMPHOCYTES # (AUTO) 0.9 K/uL (1.0-5.5); LYMPHOCYTES % (AUTO) 7.8 % (20.5-51.5); MEAN CORPUSCULAR HEMOGLOBIN 29 pg (27-31); MEAN CORPUSCULAR HGB CONC 33 % (32-36); MEAN CORPUSCULAR VOLUME 87 fL (79.0-98.0); MONOCYTES # (AUTO) 0.3 K/uL (0.0-1.0); MONOCYTES % (AUTO) 2.7 % (1.7-9.3); NEUTROPHILS # (AUTO) 10.4 K/uL (1.8-7.7); NEUTROPHILS % (AUTO) 89.3 % (40.0-70.0); PLATELET COUNT (AUTO) 248 K/uL (130-430); RED BLOOD CELL COUNT(AUTO) 3.42 MIL/uL (4.2-6.2); RED CELL DISTRIBUTION WIDTH 16.5 % (9.0-15.0); WHITE BLOOD COUNT (AUTO) 11.6 K/uL (4.8-10.8)
[2020-06-10 07:07] LABS: ALBUMIN 1.9 g/dL (3.4-4.8); CALCIUM 8.5 mg/dL (8.4-11.0); CREATININE 0.76 mg/dL (0.55-1.30); TOTAL BILIRUBIN 0.2 mg/dL (0.0-1.0)
[2020-06-10 08:00] VITALS: BP_SYST 111
[2020-06-10] MEDS: LevETIRAcetam 500 MG/5 ML UDC ORAL LIQUID GT SCH ×2 (08:49→20:59)
[2020-06-10] MEDS: FERROUS SULFATE 300 MG/5 ML UDC GT SCH (08:49)
[2020-06-10] MEDS: SUCRALFATE 1 GM TABLET GT SCH ×4 (08:50→20:59)
[2020-06-10] MEDS: ASCORBIC ACID 500 MG TABLET GT SCH (08:50)
[2020-06-10] MEDS: CHOLECALCIFEROL (VITAMIN D3) 2,000 UNIT TABLET GT SCH (08:50)
[2020-06-10] MEDS: METOPROLOL TARTRATE 50 MG TABLET GT SCH ×2 (08:50→21:00)
[2020-06-10] MEDS: predniSONE 20 MG TABLET GT SCH (08:50)
[2020-06-10] MEDS: MULTIVITAMINS TAB 1 TABLET GT SCH (08:51)
[2020-06-10] MEDS: MENTHOL/ZINC OXIDE 113 GM OINT. TP SCH ×2 (08:52→09:05)
[2020-06-10] MEDS: MILK OF MAGNESIA 30 ML UDC GT SCH (08:53)
[2020-06-10] MEDS ORDERED: FLUCONAZOLE 100 MG TABLET (DIFLUCAN) GT SCH (09:00)
[2020-06-10] MEDS ORDERED: POTASSIUM CHLORIDE 20 MEQ TAB.PRT.SR GT SCH (09:00)
[2020-06-10] MEDS ORDERED: POTASSIUM CHLORIDE 20 MEQ/PKT PACKET GT SCH (09:00)
[2020-06-10] MEDS: CHLORHEXIDINE GLUCONATE 15 ML/DOSE, 480 ML MM SCH ×2 (09:05→21:01)
[2020-06-10] MEDS: BALSAM PERU/CASTOR OIL 60 GM OINT...G. TP SCH (09:06)
[2020-06-10] MEDS: LINEZOLID 300 ML IV SCH ×2 (09:27→21:01)
[2020-06-10 12:59] VITALS: BP_SYST 121
[2020-06-10 16:12] VITALS: BP_SYST 102
[2020-06-10] MEDS ORDERED: POTASSIUM CHLORIDE 20 MEQ/PKT PACKET GT ONE (17:45)
[2020-06-10 19:00] VITALS: BP_SYST 123
[2020-06-10 20:00] VITALS: BP_SYST 123
[2020-06-10] MEDS: POTASSIUM CHLORIDE 20 MEQ/PKT PACKET GT SCH (20:59)
[2020-06-11 00:26] VITALS: BP_SYST 116
[2020-06-11] MEDS: LR 1,000 ML IV SCH (04:04)
[2020-06-11] MEDS: LANSOPRAZOLE 30 MG CAPSULE.DR GT SCH (05:27)
[2020-06-11] MEDS: PIPERACILLIN/TAZO 3.375 GM in NS 50 ML IV SCH ×4 (05:27→23:22)
[2020-06-11 06:34] LABS: BASOPHILS % (AUTO) 0.2 % (0.0-2.0); EOSINOPHILS # (AUTO) 0.1 K/uL (0.0-0.4); EOSINOPHILS % (AUTO) 0.5 % (0.0-4.0); HEMATOCRIT 29.8 % (36-48); HEMOGLOBIN 9.8 g/dL (12.0-16.0); LYMPHOCYTES # (AUTO) 1.2 K/uL (1.0-5.5); LYMPHOCYTES % (AUTO) 9.6 % (20.5-51.5); MEAN CORPUSCULAR HEMOGLOBIN 29 pg (27-31); MEAN CORPUSCULAR HGB CONC 33 % (32-36); MEAN CORPUSCULAR VOLUME 87 fL (79.0-98.0); MONOCYTES # (AUTO) 0.5 K/uL (0.0-1.0); MONOCYTES % (AUTO) 4.2 % (1.7-9.3); NEUTROPHILS # (AUTO) 10.7 K/uL (1.8-7.7); NEUTROPHILS % (AUTO) 85.5 % (40.0-70.0); PLATELET COUNT (AUTO) 238 K/uL (130-430); RED BLOOD CELL COUNT(AUTO) 3.42 MIL/uL (4.2-6.2); RED CELL DISTRIBUTION WIDTH 15.9 % (9.0-15.0); WHITE BLOOD COUNT (AUTO) 12.5 K/uL (4.8-10.8)
[2020-06-11 06:55] LABS: ALBUMIN 1.9 g/dL (3.4-4.8); CALCIUM 8.3 mg/dL (8.4-11.0); CREATININE 0.64 mg/dL (0.55-1.30); POTASSIUM 3.4 mmol/L (3.5-5.1); TOTAL BILIRUBIN 0.2 mg/dL (0.0-1.0)
[2020-06-11 08:00] VITALS: BP_SYST 129
[2020-06-11] MEDS: FERROUS SULFATE 300 MG/5 ML UDC GT SCH (08:44)
[2020-06-11] MEDS: MILK OF MAGNESIA 30 ML UDC GT SCH (08:44)
[2020-06-11] MEDS: METOPROLOL TARTRATE 50 MG TABLET GT SCH ×2 (08:45→21:50)
[2020-06-11] MEDS: ASCORBIC ACID 500 MG TABLET GT SCH (08:45)
[2020-06-11] MEDS: CHOLECALCIFEROL (VITAMIN D3) 2,000 UNIT TABLET GT SCH (08:45)
[2020-06-11] MEDS: MULTIVITAMINS TAB 1 TABLET GT SCH (08:45)
[2020-06-11] MEDS: LINEZOLID 300 ML IV SCH (08:46)
[2020-06-11] MEDS: predniSONE 20 MG TABLET GT SCH (08:59)
[2020-06-11] MEDS: SUCRALFATE 1 GM TABLET GT SCH ×4 (08:59→21:42)
[2020-06-11] MEDS: LevETIRAcetam 500 MG/5 ML UDC ORAL LIQUID GT SCH ×2 (08:59→21:41)
[2020-06-11] MEDS: POTASSIUM CHLORIDE 20 MEQ/PKT PACKET GT SCH ×3 (08:59→21:42)
[2020-06-11] MEDS: CHLORHEXIDINE GLUCONATE 15 ML/DOSE, 480 ML MM SCH ×2 (09:01→21:50)
[2020-06-11] MEDS: BALSAM PERU/CASTOR OIL 60 GM OINT...G. TP SCH (09:02)
[2020-06-11] MEDS: MENTHOL/ZINC OXIDE 113 GM OINT. TP SCH (09:02)
[2020-06-11 12:39] VITALS: BP_SYST 118
[2020-06-11 12:52] LABS: PROTHROMBIN TIME 9.7 SECS (9.5-12.5)
[2020-06-11 16:52] VITALS: BP_SYST 116
[2020-06-11 20:00] VITALS: BP_SYST 134
[2020-06-12] VITALS (7 sets, daily range): BP systolic 120–140
[2020-06-12 06:24] LABS: BASOPHILS % (AUTO) 0.2 % (0.0-2.0); EOSINOPHILS # (AUTO) 0.1 K/uL (0.0-0.4); EOSINOPHILS % (AUTO) 0.7 % (0.0-4.0); HEMATOCRIT 28.3 % (36-48); HEMOGLOBIN 9.3 g/dL (12.0-16.0); LYMPHOCYTES % (AUTO) 12.6 % (20.5-51.5); MEAN CORPUSCULAR HEMOGLOBIN 29 pg (27-31); MEAN CORPUSCULAR HGB CONC 33 % (32-36); MEAN CORPUSCULAR VOLUME 87 fL (79.0-98.0); MONOCYTES # (AUTO) 0.5 K/uL (0.0-1.0); MONOCYTES % (AUTO) 6.7 % (1.7-9.3); NEUTROPHILS # (AUTO) 6.1 K/uL (1.8-7.7); NEUTROPHILS % (AUTO) 79.8 % (40.0-70.0); PLATELET COUNT (AUTO) 230 K/uL (130-430); RED BLOOD CELL COUNT(AUTO) 3.24 MIL/uL (4.2-6.2); RED CELL DISTRIBUTION WIDTH 16.2 % (9.0-15.0); WHITE BLOOD COUNT (AUTO) 7.6 K/uL (4.8-10.8)
[2020-06-12] MEDS: LANSOPRAZOLE 30 MG CAPSULE.DR GT SCH (06:26)
[2020-06-12] MEDS: PIPERACILLIN/TAZO 3.375 GM in NS 50 ML IV SCH ×3 (06:27→17:15)
[2020-06-12 07:15] LABS: ALBUMIN 1.7 g/dL (3.4-4.8); CALCIUM 8.2 mg/dL (8.4-11.0); CREATININE 0.74 mg/dL (0.55-1.30); POTASSIUM 3.3 mmol/L (3.5-5.1); TOTAL BILIRUBIN 0.3 mg/dL (0.0-1.0)
[2020-06-12] MEDS ORDERED: predniSONE 20 MG TABLET GT SCH (09:00)
[2020-06-12] MEDS: BALSAM PERU/CASTOR OIL 60 GM OINT...G. TP SCH (09:13)
[2020-06-12] MEDS: MENTHOL/ZINC OXIDE 113 GM OINT. TP SCH (09:13)
[2020-06-12] MEDS: MILK OF MAGNESIA 30 ML UDC GT SCH (09:17)
[2020-06-12] MEDS: FERROUS SULFATE 300 MG/5 ML UDC GT SCH (09:18)
[2020-06-12] MEDS: LevETIRAcetam 500 MG/5 ML UDC ORAL LIQUID GT SCH (09:18)
[2020-06-12] MEDS: METOPROLOL TARTRATE 50 MG TABLET GT SCH (09:19)
[2020-06-12] MEDS: ASCORBIC ACID 500 MG TABLET GT SCH (09:19)
[2020-06-12] MEDS: MULTIVITAMINS TAB 1 TABLET GT SCH (09:19)
[2020-06-12] MEDS: POTASSIUM CHLORIDE 20 MEQ/PKT PACKET GT SCH ×2 (09:19→13:59)
[2020-06-12] MEDS: SUCRALFATE 1 GM TABLET GT SCH ×3 (09:19→17:15)
[2020-06-12] MEDS: CHLORHEXIDINE GLUCONATE 15 ML/DOSE, 480 ML MM SCH (09:19)
[2020-06-12] MEDS: CHOLECALCIFEROL (VITAMIN D3) 2,000 UNIT TABLET GT SCH (09:19)
[2020-06-12] MEDS ORDERED: POTASSIUM CHLORIDE 20 MEQ/PKT PACKET GT ONE (10:00)
[2020-06-12] MEDS: LR 1,000 ML IV SCH (18:36)
== END 2020-06-12 20:12 | DRG 720 ==
LOC: SED 22:48 → STU 06-09 01:25
PROVIDERS: ADMIT Internal Medicine; ATTEND Internal Medicine
PROC: 5A1945Z Respiratory Ventilation, 24-96 Consecutive Hours (ICD-10-PCS; principal; 2020-06-09)
PROC: 0D20XUZ Change Feeding Device in Upper Intestinal Tract, External Approach (ICD-10-PCS; 2020-06-09)
DX: A41.9 Sepsis, unspecified organism (principal); J18.9 Pneumonia, unspecified organism; N39.0 Urinary tract infection, site not specified; E43 Unspecified severe protein-calorie malnutrition; R65.21 Severe sepsis with septic shock; R57.1 Hypovolemic shock; Y83.8 Other surgical procedures as the cause of abnormal reaction of the patient, or of later complication, without mention of misadventure at the time of the procedure; Y82.8 Other medical devices associated with adverse incidents; K94.23 Gastrostomy malfunction; K94.22 Gastrostomy infection; L03.311 Cellulitis of abdominal wall; G40.909 Epilepsy, unspecified, not intractable, without status epilepticus; E78.5 Hyperlipidemia, unspecified; G93.1 Anoxic brain damage, not elsewhere classified; R13.10 Dysphagia, unspecified; I48.0 Paroxysmal atrial fibrillation; K31.6 Fistula of stomach and duodenum; I12.9 Hypertensive chronic kidney disease with stage 1 through stage 4 chronic kidney disease, or unspecified chronic kidney disease; N18.9 Chronic kidney disease, unspecified; F03.90 Unspecified dementia, unspecified severity, without behavioral disturbance, psychotic disturbance, mood disturbance, and anxiety; Z20.828 Contact with and (suspected) exposure to other viral communicable diseases; J96.10 Chronic respiratory failure, unspecified whether with hypoxia or hypercapnia; Y95 Nosocomial condition; E87.6 Hypokalemia; J15.9 Unspecified bacterial pneumonia; Z79.899 Other long term (current) drug therapy; Z68.25 Body mass index [BMI] 25.0-25.9, adult; Z99.11 Dependence on respirator [ventilator] status; Z78.9 Other specified health status
CPT/HCPCS: 36415; 71045; 74240-TC; 80048; 80053; 80061; 81000-TC; 82962; 83605; 83690-TC; 83735-TC; 83880; 85025; 85610-TC; 85730-TC; 87040-TC; 87070-TC; 87081; 87086; 87186-TC; 87205-TC; 94003; 94760; 96365; 96367; 99285; C1751; G0378; J0696; J2020; J2543; J3370; J7030; J7040; J7050; J7120; J7512; Q9963